=== PATIENT | female | born 1975 | race Caucasian/White ===

== ENCOUNTER 2016-08-13 05:56 | Observation (INO) | payer BC, OTHER ==
[2016-08-13] MEDS ORDERED: ONDANSETRON 4 MG/2 ML VIAL IVP STA (06:21)
[2016-08-13] MEDS ORDERED: LORazepam 2 MG/ML SYRINGE IV STA (06:21)
[2016-08-13] MEDS ORDERED: PANTOPRAZOLE 40 MG/10 ML VIAL IVP STA (06:21)
[2016-08-13] MEDS ORDERED: SODIUM CHLORIDE 0.9% 1,000 ML IV STA (06:21)
--- NOTE | 2016-08-13 06:32 | ED ---
General Adult HPI - General Source: patient, RN notes reviewed, old records reviewed Mode of arrival: wheelchair Limitations: no limitations <Lamont Joyner - Last Filed: 08/13/16 06:31> <Jose F Gentile - Last Filed: 08/13/16 08:53> - General Chief complaint: Chest Pain Stated complaint: Chest Pain Time Seen by Provider: 08/13/16 06:18 - History of Present Illness Initial comments: This is a 40-year-old female here with chest a. Patient has severe chest pain and anxiety, patient suffer from anxiety which was diagnosed in the emergency room under a similar bout of chest pain. Patient denies have blood pressure [place] she'll no diabetes or shortness of breath. Family history of heart disease and her grandma, patient they chest pains and going on for a day and half or grossly worse unable to sleep last night significant source of breath chest pain is left-sided with no radiation she did take her Xanax she did take [id number] antacids with no help. No fevers cough or congestion, no travel history. (Lamont Joyner) - Related Data Home Medications Medication Instructions Recorded Confirmed ALPRAZolam [Xanax] 0.5 mg PO QID 12/18/13 08/13/16 Sertraline HCl [Zoloft] 150 mg PO DAILY 12/18/13 08/13/16 Allergies Allergy/AdvReac Type Severity Reaction Status Date / Time Penicillins Allergy Unknown Verified 12/18/13 19:01 Sulfa (Sulfonamide Allergy Unknown Verified 12/18/13 19:01 Antibiotics) Review of Systems ROS Other: All systems not noted in ROS Statement are negative. <Lamont Joyner - Last Filed: 08/13/16 06:31> ROS Other: All systems not noted in ROS Statement are negative. <Jose F Gentile - Last Filed: 08/13/16 08:53> ROS Statement: Those systems with pertinent positive or pertinent negative responses have been documented in the HPI. Past Medical History Additional Past Medical History / Comment(s): DENTAL ABSCESS History of Any Multi-Drug Resistant Organisms: None Reported Past Surgical History: Orthopedic Surgery Past Psychological History: Anxiety, Depression Smoking Status: Current every day smoker Past Alcohol Use History: Rare Past Drug Use History: None Reported <Lamont Joyner - Last Filed: 08/13/16 06:31> General Exam Limitations: no limitations General appearance: alert, in no apparent distress, anxious Head exam: Present: atraumatic, normocephalic, normal inspection Eye exam: Present: normal appearance, PERRL, EOMI. Absent: scleral icterus, conjunctival injection, periorbital swelling ENT exam: Present: normal exam, mucous membranes moist Neck exam: Present: normal inspection. Absent: tenderness, meningismus, lymphadenopathy Respiratory exam: Present: normal lung sounds bilaterally. Absent: respiratory distress, wheezes, rales, rhonchi, stridor Cardiovascular Exam: Present: regular rate, normal rhythm, normal heart sounds. Absent: systolic murmur, diastolic murmur, rubs, gallop, clicks GI/Abdominal exam: Present: soft, normal bowel sounds. Absent: distended, tenderness, guarding, rebound, rigid Extremities exam: Present: normal inspection, full ROM, normal capillary refill. Absent: tenderness, pedal edema, joint swelling, calf tenderness Back exam: Present: normal inspection Neurological exam: Present: alert, oriented X3, CN II-XII intact Psychiatric exam: Present: normal affect, normal mood Skin exam: Present: warm, dry, intact, normal color. Absent: rash <Lamont Joyner - Last Filed: 08/13/16 06:31> EKG Findings - EKG Comments: EKG Findings:: EKG shows normal sinus rhythm at 79, OH 118, QRS 74, QTC 449 <Lamont Joyner - Last Filed: 08/13/16 06:31> Medical Decision Making <Lamont Joyner - Last Filed: 08/13/16 06:31> - Lab Data Result diagrams: 08/13/16 06:35 08/13/16 06:35 - Radiology Data Radiology results: image reviewed (Chest x-ray shows no acute process.) <Jose F Gentile - Last Filed: 08/13/16 08:53> - Medical Decision Making Patient reevaluated and symptom-free following nitroglycerin. Patient states Ativan helped with her anxiety however did not help with chest discomfort were nitroglycerin did. Patient and family updated on results and plan. Case was discussed in detail with Dr. Vazquez, who will admit for hospital call. (Jose F Gentile) - Lab Data Lab Results 08/13/16 08/13/16 08/13/16 Range/Units 06:35 06:35 06:35 WBC 5.5 (3.8-10.6) k/uL RBC 4.79 (3.80-5.40) m/uL Hgb 15.7 (11.4-16.0) gm/dL Hct 46.4 H (34.0-46.0) % MCV 96.8 (80.0-100.0) fL MCH 32.8 (25.0-35.0) pg MCHC 33.9 (31.0-37.0) g/dL RDW 12.6 (11.5-15.5) % Plt Count 239 (150-450) k/uL Neutrophils % 55 % Lymphocytes % 36 % Monocytes % 5 % Eosinophils % 2 % Basophils % 0 % Neutrophils # 3.0 (1.3-7.7) k/uL Lymphocytes # 2.0 (1.0-4.8) k/uL Monocytes # 0.3 (0-1.0) k/uL Eosinophils # 0.1 (0-0.7) k/uL Basophils # 0.0 (0-0.2) k/uL PT (9.0-12.0) sec INR (<1.1) APTT (22.0-30.0) sec Sodium 147 H (137-145) mmol/L Potassium 4.0 (3.5-5.1) mmol/L Chloride 107 (98-107) mmol/L Carbon Dioxide 27 (22-30) mmol/L Anion Gap 13 mmol/L BUN 15 (7-17) mg/dL Creatinine 0.83 (0.52-1.04) mg/dL Est GFR (MDRD) Af Amer >60 (>60 ml/min/1.73 sqM) Est GFR (MDRD) Non-Af >60 (>60 ml/min/1.73 sqM) Glucose 104 H (74-99) mg/dL Calcium 10.6 H (8.4-10.2) mg/dL Magnesium 2.0 (1.6-2.3) mg/dL Total Bilirubin 0.9 (0.2-1.3) mg/dL AST 18 (14-36) U/L ALT 35 (9-52) U/L Alkaline Phosphatase 70 (38-126) U/L Total Creatine Kinase 25 L (30-135) U/L CK-MB (CK-2) 0.5 (0.0-2.4) ng/mL CK-MB (CK-2) Rel Index 2.0 Troponin I <0.012 (0.000-0.034) ng/mL NT-Pro-B Natriuret Pep pg/mL Total Protein 8.0 (6.3-8.2) g/dL Albumin 4.7 (3.5-5.0) g/dL Lipase 390 H (23-300) U/L Influenza Type A RNA (Not Detectd) Influenza Type B (PCR) (Not Detectd) 08/13/16 08/13/16 08/13/16 Range/Units 06:35 06:35 06:35 WBC (3.8-10.6) k/uL RBC (3.80-5.40) m/uL Hgb (11.4-16.0) gm/dL Hct (34.0-46.0) % MCV (80.0-100.0) fL MCH (25.0-35.0) pg MCHC (31.0-37.0) g/dL RDW (11.5-15.5) % Plt Count (150-450) k/uL Neutrophils % % Lymphocytes % % Monocytes % % Eosinophils % % Basophils % % Neutrophils # (1.3-7.7) k/uL Lymphocytes # (1.0-4.8) k/uL Monocytes # (0-1.0) k/uL Eosinophils # (0-0.7) k/uL Basophils # (0-0.2) k/uL PT 10.8 (9.0-12.0) sec INR 1.1 (<1.1) APTT 24.7 (22.0-30.0) sec Sodium (137-145) mmol/L Potassium (3.5-5.1) mmol/L Chloride (98-107) mmol/L Carbon Dioxide (22-30) mmol/L Anion Gap mmol/L BUN (7-17) mg/dL Creatinine (0.52-1.04) mg/dL Est GFR (MDRD) Af Amer (>60 ml/min/1.73 sqM) Est GFR (MDRD) Non-Af (>60 ml/min/1.73 sqM) Glucose (74-99) mg/dL Calcium (8.4-10.2) mg/dL Magnesium (1.6-2.3) mg/dL Total Bilirubin (0.2-1.3) mg/dL AST (14-36) U/L ALT (9-52) U/L Alkaline Phosphatase (38-126) U/L Total Creatine Kinase (30-135) U/L CK-MB (CK-2) (0.0-2.4) ng/mL CK-MB (CK-2) Rel Index Troponin I (0.000-0.034) ng/mL NT-Pro-B Natriuret Pep 60 pg/mL Total Protein (6.3-8.2) g/dL Albumin (3.5-5.0) g/dL Lipase (23-300) U/L Influenza Type A RNA Not Detected (Not Detectd) Influenza Type B (PCR) Not Detected (Not Detectd) Disposition <Lamont Joyner - Last Filed: 08/13/16 06:31> <Jose F Gentile - Last Filed: 08/13/16 08:53> Clinical Impression: Chest pain Disposition: ADMITTED IP TO THIS HOSP
[2016-08-13 07:01] LABS: Basophils % (A) 0 %; CH 33.5; CHCM 34.8; Eosinophils # (A) 0.1 k/uL (0-0.7); Eosinophils % (A) 2 %; HCT 46.4 % (34.0-46.0); HDW 2.29; HGB 15.7 gm/dL (11.4-16.0); Luc # (Auto) 0.12; Luc % (Auto) 2; Lymphocytes % (A) 36 %; MCH 32.8 pg (25.0-35.0); MCHC 33.9 g/dL (31.0-37.0); MCV 96.8 fL (80.0-100.0); Mean Platelet Volume 6.5; Monocytes # (A) 0.3 k/uL (0-1.0); Monocytes % (A) 5 %; Neutrophils % (A) 55 %; RBC 4.79 m/uL (3.80-5.40); RDW 12.6 % (11.5-15.5); WBC 5.5 k/uL (3.8-10.6); WBC (Perox) 5.38
[2016-08-13 07:10] LABS: INR 1.1 (<1.1); Partial Thromboplastin Time 24.7 sec (22.0-30.0); Prothrombin Time 10.8 sec (9.0-12.0)
[2016-08-13 07:19] LABS: ALT 35 U/L (9-52); AST 18 U/L (14-36); Alkaline Phosphatase 70 U/L (38-126); Anion Gap 13 mmol/L; Blood Urea Nitrogen 15 mg/dL (7-17); Calcium 10.6 mg/dL (8.4-10.2); Carbon Dioxide 27 mmol/L (22-30); Chloride 107 mmol/L (98-107); Glucose 104 mg/dL (74-99); Non-African American GFR(MDRD) >60 (>60 ml/min/1.73 sqM); Sodium 147 mmol/L (137-145); Total Bilirubin 0.9 mg/dL (0.2-1.3)
[2016-08-13 07:25] LABS: Creatine Kinase 25 U/L (30-135)
--- NOTE | 2016-08-13 07:28 | XR ---
EXAMINATION TYPE: XR chest 2V DATE OF EXAM: 08/13/2016 7:18 AM COMPARISON: NONE HISTORY: Chest pain and shortness of breath TECHNIQUE: Frontal and lateral views of the chest are obtained. FINDINGS: There is no focal air space opacity, pleural effusion, or pneumothorax seen. The cardiac silhouette size is within normal limits. The osseous structures are intact. IMPRESSION: No acute cardiopulmonary process.
[2016-08-13 07:36] LABS: Creatine Kinase MB 0.5 ng/mL (0.0-2.4); Troponin I <0.012 ng/mL (0.000-0.034)
[2016-08-13] MEDS ORDERED: NITROGLYCERIN SL TABS 0.4 MG TAB SUBLINGUAL PRN ×2 (07:54→08:57)
[2016-08-13] MEDS ORDERED: ASPIRIN 81 MG CHEW PO STA (08:57)
[2016-08-13] MEDS ORDERED: RX INFO: IV CONTRAST WAS GIVEN 1 EACH MISC MISCELLANE PRN (12:13)
[2016-08-13] MEDS ORDERED: IOHEXOL 350 MG/ML 25 ML BOTTLE (ORAL USE) PO PRN (12:13)
[2016-08-13 12:42] VITALS: BMI 19.4
[2016-08-13 12:54] LABS: Creatine Kinase 21 U/L (30-135)
[2016-08-13 13:06] LABS: Creatine Kinase MB 0.3 ng/mL (0.0-2.4); Troponin I <0.012 ng/mL (0.000-0.034)
[2016-08-13] MEDS: NITROGLYCERIN OINT 1 INCH/GM PACKET TOPICAL SCH ×2 (13:07→16:01)
--- NOTE | 2016-08-13 13:17 | CONS ---
DATE OF CONSULTATION: CHIEF COMPLAINT: Chest pain. [place] is a 40-year-old lady who presented to [facility] complaining of chest pain. She complains of sharp precordial pain without definite radiation to neck, arm or back, unassociated with diaphoresis and unrelated to exertion. She is also very anxious. EKG does not reveal ischemic changes. First set of cardiac enzymes are negative. She is negative for flu. The d-dimer is negative. At the time of my evaluation this morning, she is pain free, hemodynamically stable and in no apparent distress. Medications at home included Zoloft, Xanax and oxycodone. Allergic to PENICILLIN, SULFA, BACTRIM. Family history is negative for premature coronary artery disease. Social history is significant for smoking. There is no history of EtOH abuse or drug abuse. REVIEW OF SYSTEMS: HEENT is unremarkable. CARDIAC: As described above. RESPIRATORY: Negative. GI: Negative. GENITOURINARY: Negative. ALLERGY/IMMUNOLOGY: Negative. SKIN: Negative. MUSCULOSKELETAL: Negative. ENDOCRINE: Negative. CONSTITUTIONAL: Negative. ONCOLOGICAL: Negative. The rest of the system review is not relevant. On exam, comfortable at rest. Vital signs are stable. There is no jugular venous distention. Carotid upstroke is normal. There is no bruit. Chest exam reveals good air entry bilaterally. Heart exam reveals first and second heart sounds. No gallop. No murmur, no rub. Abdomen is soft, nontender. Exam of the extremities did not reveal edema. 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 Labs have been reviewed. ASSESSMENT: Chest pain, atypical, will get another set of troponin to rule out myocardial infarction. Once this is done, obtain an echo to assess wall motion and left ventricular function and hopefully can be discharged home tomorrow and pursue work-up as outpatient.
[2016-08-13] MEDS ORDERED: ONDANSETRON 4 MG/2 ML VIAL IVP PRN (14:26)
--- NOTE | 2016-08-13 14:32 | CT ---
EXAMINATION TYPE: CT abdomen w con DATE OF EXAM: 08/13/2016 2:09 PM COMPARISON: NONE HISTORY: Upper Abdomen and chest pain CT DLP: 298 mGycm Automated exposure control for dose reduction was used. TECHNIQUE: Helical acquisition of images was performed from the lung bases through the top of iliac crest to include entire abdomen. CONTRAST: Performed with Oral Contrast and with IV Contrast, patient injected with 100 mL of Omnipaque 300. FINDINGS: LUNG BASES: No significant abnormality is appreciated. LIVER/GB: No significant abnormality is appreciated. PANCREAS: No significant abnormality is seen. SPLEEN: No significant abnormality is seen. ADRENALS: No significant abnormality is seen. KIDNEYS: No significant abnormality is seen. BOWEL: No significant abnormality is seen. LYMPH NODES: No suspicious abdominal lymphadenopathy. OSSEOUS STRUCTURES: No significant abnormality is seen. OTHER: None IMPRESSION: 1. NORMAL POSTCONTRAST CT ABDOMEN
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
[2016-08-13] MEDS: ALPRAZolam 0.5 MG TAB PO SCH ×2 (16:01→19:48)
[2016-08-13] MEDS: SERTRALINE 50 MG TAB PO SCH (16:01)
[2016-08-13 17:05] VITALS: RESP 16
[2016-08-13 19:26] LABS: Creatine Kinase 24 U/L (30-135)
[2016-08-13 19:38] LABS: Creatine Kinase MB 0.3 ng/mL (0.0-2.4); Troponin I <0.012 ng/mL (0.000-0.034)
[2016-08-14] MEDS: NITROGLYCERIN OINT 1 INCH/GM PACKET TOPICAL SCH ×2 (02:19→04:18)
[2016-08-14] MEDS: SERTRALINE 50 MG TAB PO SCH (07:22)
[2016-08-14] MEDS: ALPRAZolam 0.5 MG TAB PO SCH (07:22)
[2016-08-14 07:33] LABS: Cholesterol 193 mg/dL (<200); HDL Cholesterol 61 mg/dL (40-60); Triglycerides 84 mg/dL (<150)
[2016-08-14 07:39] VITALS: BP 98/65; PULSE 86; TEMP 98.5
--- NOTE | 2016-08-14 08:37 | PN ---
[place] is a 40-year-old lady who was admitted to hospital with chest pain and ruled out for myocardial infarction. This morning, she is doing well and is free of symptoms. Had an echo done. Will follow the results. If that is negative, she can be discharged home. On exam, comfortable at rest. Vital signs are stable. There is no jugular venous distention. Chest exam reveals good air entry bilaterally. Heart exam reveals first and second heart sounds. No gallop. Exam of the extremities did not reveal edema. Peripheral pulses are felt. ASSESSMENT: Atypical chest pain. Patient is doing well and stable for discharge if the echo looks normal.
[2016-08-14] MEDS ORDERED: ASPIRIN 325 MG TAB PO SCH (09:00)
--- NOTE | 2016-08-14 10:20 | ECHOF ---
Referral Reason:cp MEASUREMENTS -------- HEIGHT: 170.2 cm WEIGHT: 56.3 kg BP: 102/54 IVSd: 1.2 cm (0.6 - 1.1) LVIDd: 4.2 cm (3.9 - 5.3) LVPWd: 1.0 cm (0.6 - 1.1) IVSs: 1.6 cm LVIDs: 3.0 cm LVPWs: 1.7 cm Ao Diam: 3.1 cm (2.0 - 3.7) AV Cusp: 2.0 cm (1.5 - 2.6) LA Diam: 3.3 cm (2.7 - 3.8) MV EXCURSION: 12.842 mm (> 18.000) MV EF SLOPE: 91 mm/s (70 - 150) MV E Jan: 0.68 m/s MV DecT: 267 ms MV A Jan: 0.66 m/s MV E/A Ratio: 1.03 RAP: 15.00 mmHg RVSP: 28.36 mmHg FINDINGS -------- Sinus rhythm. This was a technically good study. There is mild concentric left ventricular hypertrophy. Overall left ventricular systolic function is low-normal with, an EF between 50 - 55 %. The right ventricle is normal in size and function. The left atrium is normal in size. The right atrium is normal in size. Aortic valve is trileaflet and is mildly thickened. The mitral valve leaflets are mildly thickened. Mild mitral annular calcification present. There is trace mitral regurgitation. Trace tricuspid regurgitation present. The right ventricular systolic pressure, as measured by Doppler, is 28.36mmHg. Pulmonic valve appears structurally normal. The aortic root size is normal. The pericardium is normal. CONCLUSIONS -------- 1. Sinus rhythm. 2. Mild mitral annular calcification present. 3. There is trace mitral regurgitation. 4. Trace tricuspid regurgitation present. 5. The right ventricular systolic pressure, as measured by Doppler, is 28.36mmHg. 6. Pulmonic valve appears structurally normal. 7. The aortic root size is normal. 8. The pericardium is normal. 9. This was a technically good study. 10. There is mild concentric left ventricular hypertrophy. 11. Overall left ventricular systolic function is low-normal with, an EF between 50 - 55 %. 12. The right ventricle is normal in size and function. 13. The left atrium is normal in size. 14. The right atrium is normal in size. 15. Aortic valve is trileaflet and is mildly thickened. 16. The mitral valve leaflets are mildly thickened. DIRECTOR MEDICAID: Sophia Griffin RDCS
--- NOTE | 2016-08-14 10:50 | P.DS ---
Providers Date of admission: 08/13/16 08:57 Expected date of discharge: 08/14/16 Attending physician: Alexis Wick Consults: Dr. Simons cardiology Primary care physician: Evesn Garcia Hospital Course: 40-year-old female presented on the day of admission to the emergency room to be evaluated for chief complaint of developing sharp left-sided chest discomfort hurt to touch the chest. Patient stated that it radiated to the back of the neck and down the arm. There was no nausea vomiting no diaphoresis. The d-dimer was negative. Patient was seen in the emergency room this nasal swab was negative for influenza. A cardiology consultation was requested. Echocardiogram ordered showed an EF between 50 and 55% left ventricular systolic function normal. There was no valvular heart disease. Cardiac enzymes 3 sets were negative. Additional patient was reportedly experiencing abdominal discomfort. CAT scan of the abdomen and pelvis was normal postcontrast CT abdomen no acute finding chest x-ray showed no acute cardiopulmonary process. Cardiology indicate the patient could be discharged home. The symptoms had resolved patient was felt to be hemodynamically stable and appropriate proceed with a discharge Impression Present on admission chest pain atypical features no evidence of acute coronary syndrome Anxiety disorder nonspecified Current every day smoker 1 pack a day greater than a 20 year history probable COPD Present on admission elevated lipase repeat normal The above dictated assessment and findings were discussed with dr wick . Impression and the plan of care have been dictated as directed. Allyson Aiken nurse practitioner acting as a scribe for Dr. Wick Plan - Discharge Summary Discharge Medication List ALPRAZolam [Xanax] 1 mg PO TID 08/13/16 [History] Sertraline [Zoloft] 100 mg PO DAILY 08/13/16 [History] oxyCODONE HCL 10 mg PO QID PRN 08/13/16 [History] Follow up Appointment(s)/Referral(s): Evens Garcia MD [Primary Care Provider] - 1-2 days Chris Callaway MD [STAFF PHYSICIAN] - 1 Week (Follow up appointment has been schedule for September 11 at 2:[address] Callaway.) Discharge Disposition: HOME SELF-CARE
== END 2016-08-14 11:00 | disposition home or self-care (01) ==
LOC: EC 05:56 → 6SEL 08:57 → 3OBS 16:53
PROVIDERS: ADMIT Family Medicine; ATTEND Family Medicine
DX: R07.89 Other chest pain (principal); R74.8 Abnormal levels of other serum enzymes; M94.0 Chondrocostal junction syndrome [Tietze]; F32.9 Major depressive disorder, single episode, unspecified; F41.9 Anxiety disorder, unspecified; R10.9 Unspecified abdominal pain; F17.200 Nicotine dependence, unspecified, uncomplicated; Z82.49 Family history of ischemic heart disease and other diseases of the circulatory system; Z79.899 Other long term (current) drug therapy; Z88.0 Allergy status to penicillin; Z88.2 Allergy status to sulfonamides; Z79.891 Long term (current) use of opiate analgesic; M21.951 Unspecified acquired deformity of right thigh
CPT/HCPCS: 96361; 96374; 96375 ×2; 99285; 36415; 93005; 93306; 85379; 83880; 80061; 80053; 82550; 82553; 83690 ×2; 83735; 84484; 85025; 85610; 85730; 87502; 71020; 74160; G0378 ×3; J2060; J2405; Q9967; C9113

== ENCOUNTER 2018-05-24 00:34 | Emergency (ER) | payer OTHER ==
[2018-05-24] MEDS ORDERED: methylPREDNISolone SOD SUCCI 125 MG/2 ML VIAL IM ONE (01:03)
[2018-05-24] MEDS ORDERED: IPRATROPIUM-ALBUTEROL 3 ML NEB INHALATION STA (01:03)
[2018-05-24] MEDS ORDERED: PROMETHAZ-COD 6.25-10 MG/5 ML 5 ML CUP PO STA (01:04)
[2018-05-24] MEDS ORDERED: ACETAMINOPHEN TAB 500 MG TAB PO STA (01:04)
[2018-05-24] MEDS ORDERED: PROMETHAZINE HCL 6.25 MG/5 ML CUP PO STA (01:37)
--- NOTE | 2018-05-24 02:00 | XR ---
EXAMINATION TYPE: XR chest 2V DATE OF EXAM: 05/24/2018 COMPARISON: 08/13/2016 HISTORY: Chest pain TECHNIQUE: Frontal and lateral views of the chest are obtained. FINDINGS: Heart and mediastinum are normal. There is a patchy right lower lobe infiltrate. There is no heart failure. Costophrenic angles are clear. Bony thorax is intact. IMPRESSION: There is new right lower lobe pneumonia compared to old exam. Normal heart.
[2018-05-24] MEDS ORDERED: cefTRIAXone 1,000 MG VIAL (IM USE) IM STA (02:18)
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
[2018-05-24 02:45] VITALS: BP 107/66; PULSE 98; RESP 16; TEMP 99.9
== END 2018-05-24 02:45 | disposition home or self-care (01) ==
LOC: EC 00:34
DX: J18.1 Lobar pneumonia, unspecified organism (principal); F41.9 Anxiety disorder, unspecified; F32.9 Major depressive disorder, single episode, unspecified; F17.200 Nicotine dependence, unspecified, uncomplicated; Z79.899 Other long term (current) drug therapy; Z88.0 Allergy status to penicillin; Z88.2 Allergy status to sulfonamides; Z91.012 Allergy to eggs
CPT/HCPCS: 94640; 71046; 99284; 96372 ×2; J2930; J0696

== ENCOUNTER 2018-08-06 10:40 | Inpatient (IN) | payer OTHER ==
[2018-08-06] MEDS ORDERED: SODIUM CHLORIDE 0.9% 1,000 ML IV STA (11:47)
[2018-08-06] MEDS ORDERED: VANCOMYCIN IV PER PHARMACY 1 EACH MISC MISCELLANE PRN (11:47)
--- NOTE | 2018-08-06 12:06 | ED ---
General Adult HPI - General Chief complaint: Skin/Abscess/Foreign Body Stated complaint: foot infection Time Seen by Provider: 08/06/18 11:30 Source: patient, RN notes reviewed Mode of arrival: ambulatory Limitations: no limitations - History of Present Illness Initial comments: Patient 42-year-old female sent to the emergency room today with a chief complaint of infection to the right foot. Patient does admit that it started with some pain earlier in the week. Patient does admit that she had a blister which woke up yesterday she did go to urgent care they did pop the blister and started on antibiotics. She states she's had increased redness today. Patient does admit still having some numbness tingling type pain down into the foot. She currently rates a 10/09. Patient states she did start antibiotics yesterday. Denies any other complaints or symptoms at this time. Patient denies any recent fever, chills, shortness of breath, chest pain, back pain, abdominal pain, headaches or visual changes, or any other complaints. - Related Data Home Medications Medication Instructions Recorded Confirmed Sertraline [Zoloft] 100 mg PO DAILY 08/13/16 05/24/18 Gabapentin 800 mg PO TID 05/24/18 05/24/18 QUEtiapine [SEROquel] 100 mg PO HS 05/24/18 05/24/18 busPIRone HCL [Buspar] 15 mg PO TID 05/24/18 05/24/18 Previous Rx's Medication Instructions Recorded Albuterol Inhaler [Ventolin Hfa 1 - 2 puff INHALATION RT-Q6H PRN 05/24/18 Inhaler] #1 inhaler Azithromycin [Zithromax Z-pack] 250 mg PO DIRECTED #6 tab 05/24/18 Promethazine/Dextromethorphan 5 ml PO TID #120 ml 05/24/18 [Phenergan DM Syrup] predniSONE 50 mg PO DAILY #5 tablet 05/24/18 Allergies Allergy/AdvReac Type Severity Reaction Status Date / Time egg yolk Allergy Anaphylaxis Verified 08/06/18 10:49 /Itching Penicillins Allergy Anaphylaxis Verified 08/06/18 10:49 /Itching Sulfa (Sulfonamide Allergy Anaphylaxis Verified 08/06/18 10:49 Antibiotics) /Itching sulfamethoxazole Allergy Anaphylaxis Verified 08/06/18 10:49 [From Bactrim] /Itching trimethoprim [From Bactrim] Allergy Anaphylaxis Verified 08/06/18 10:49 /Itching Review of Systems ROS Statement: Those systems with pertinent positive or pertinent negative responses have been documented in the HPI. ROS Other: All systems not noted in ROS Statement are negative. Past Medical History Additional Past Medical History / Comment(s): DENTAL ABSCESS History of Any Multi-Drug Resistant Organisms: None Reported Past Surgical History: Hysterectomy, Orthopedic Surgery, Tubal Ligation Additional Past Surgical History / Comment(s): RIGHT LEG, AROUND 2001; UTERUS AND OVARIES REMOVED MORE THAN TEN YEARS AGO DUE TO CYSTIC FIBROIDS AND ENDOMETRIOSIS Past Anesthesia/Blood Transfusion Reactions: No Reported Reaction Past Psychological History: Anxiety, Depression Smoking Status: Current every day smoker Past Alcohol Use History: None Reported Past Drug Use History: Heroin - Past Family History Mother Family Medical History: Cancer Additional Family Medical History / Comment(s): LUNG CA FROM SMOKING; GREAT GRANDMA WAS DIABETIC Father History Unknown: Yes Additional Family Medical History / Comment(s): FATHER AT AGE OF 37 DUE TO RHEUMATIC FEVER COMPLICATIONS General Exam - General Exam Comments Initial Comments: General: The patient is awake and alert, in no distress Neck: The neck is supple Cardiovascular: There is a regular rate and rhythm. No murmur, rub or gallop is appreciated. Respiratory: Lungs are clear to auscultation, respirations are non-labored, breath sounds are equal. No wheezes, stridor, rales, or rhonchi. Musculoskeletal: Normal ROM, no tenderness. Strength 5/5. Sensation intact. Pedal Pulses 2+. Neurological: A&O x 3. CN II-XII intact, There are no obvious motor or sensory deficits. Coordination appears grossly intact. Speech is normal. Skin: Patient does have ulcerated wound to the top of the right great toe. Is redness erythema going up to mid foot. Psychiatric: Cooperative, appropriate mood & affect, normal judgment. Limitations: no limitations Course Vital Signs 08/06/18 10:47 Temperature 98.3 F Pulse Rate 90 Respiratory 18 Rate Blood Pressure 105/68 O2 Sat by Pulse 98 Oximetry Medical Decision Making - Medical Decision Making Patient reexamined at this time shows no signs of distress is resting comfortably. Patient's labs been reviewed negative lactic gas. Negative white count. No elevated fever at triage. Patient's x-ray showing no sign of osteomyelitis. Patient has been on outpatient antibiotics of Keflex. States symptoms are getting worse. Will be admitted to the hospital continued on vancomycin. - Lab Data Result diagrams: 08/06/18 12:06 08/06/18 12:06 Lab Results 08/06/18 08/06/18 08/06/18 Range/Units 12:06 12:06 12:06 WBC 7.4 (3.8-10.6) k/uL RBC 4.46 (3.80-5.40) m/uL Hgb 14.3 (11.4-16.0) gm/dL Hct 43.6 (34.0-46.0) % MCV 97.7 (80.0-100.0) fL MCH 32.0 (25.0-35.0) pg MCHC 32.8 (31.0-37.0) g/dL RDW 14.8 (11.5-15.5) % Plt Count 243 (150-450) k/uL Neutrophils % 61 % Lymphocytes % 28 % Monocytes % 5 % Eosinophils % 4 % Basophils % 0 % Neutrophils # 4.5 (1.3-7.7) k/uL Lymphocytes # 2.1 (1.0-4.8) k/uL Monocytes # 0.4 (0-1.0) k/uL Eosinophils # 0.3 (0-0.7) k/uL Basophils # 0.0 (0-0.2) k/uL Sodium 140 (137-145) mmol/L Potassium 5.0 (3.5-5.1) mmol/L Chloride 108 H (98-107) mmol/L Carbon Dioxide 25 (22-30) mmol/L Anion Gap 7 mmol/L BUN 19 H (7-17) mg/dL Creatinine 0.72 (0.52-1.04) mg/dL Est GFR (CKD-EPI)AfAm >90 (>60 ml/min/1.73 sqM) Est GFR (CKD-EPI)NonAf >90 (>60 ml/min/1.73 sqM) Glucose 81 (74-99) mg/dL Plasma Lactic Acid Wilner 0.9 (0.7-2.0) mmol/L Calcium 9.8 (8.4-10.2) mg/dL Total Bilirubin 0.3 (0.2-1.3) mg/dL AST 20 (14-36) U/L ALT 23 (9-52) U/L Alkaline Phosphatase 101 (38-126) U/L Total Protein 7.3 (6.3-8.2) g/dL Albumin 4.2 (3.5-5.0) g/dL Disposition Clinical Impression: Cellulitis of foot Disposition: ADMITTED IP TO THIS [facility] Condition: Good Is patient prescribed a controlled substance at d/c from ED?: No Referrals: Evens Garcia MD [Primary Care Provider] - 1-2 days Time of Disposition: 13:42
[2018-08-06] MEDS ORDERED: ONDANSETRON 4 MG/2 ML VIAL IVP STA (12:11)
[2018-08-06] MEDS ORDERED: VANCOMYCIN 1,500 MG in SODIUM CHLORIDE 0.9% 250 ML IVPB ONE (12:30)
[2018-08-06 12:48] LABS: ALT 23 U/L (9-52); AST 20 U/L (14-36); Albumin 4.2 g/dL (3.5-5.0); Alkaline Phosphatase 101 U/L (38-126); Anion Gap 7 mmol/L; Blood Urea Nitrogen 19 mg/dL (7-17); Calcium 9.8 mg/dL (8.4-10.2); Carbon Dioxide 25 mmol/L (22-30); Chloride 108 mmol/L (98-107); Glucose 81 mg/dL (74-99); Sodium 140 mmol/L (137-145); Total Bilirubin 0.3 mg/dL (0.2-1.3); Total Protein 7.3 g/dL (6.3-8.2)
[2018-08-06 12:53] LABS: Basophils % (A) 0 %; Eosinophils # (A) 0.3 k/uL (0-0.7); Eosinophils % (A) 4 %; HCT 43.6 % (34.0-46.0); HGB 14.3 gm/dL (11.4-16.0); Lymphocytes # (A) 2.1 k/uL (1.0-4.8); Lymphocytes % (A) 28 %; MCHC 32.8 g/dL (31.0-37.0); MCV 97.7 fL (80.0-100.0); Mean Platelet Volume 6.1; Monocytes # (A) 0.4 k/uL (0-1.0); Monocytes % (A) 5 %; Neutrophils # (A) 4.5 k/uL (1.3-7.7); Neutrophils % (A) 61 %; Platelet Count 243 k/uL (150-450); RBC 4.46 m/uL (3.80-5.40); RDW 14.8 % (11.5-15.5); WBC 7.4 k/uL (3.8-10.6)
--- NOTE | 2018-08-06 13:02 | XR ---
EXAMINATION TYPE: XR foot limited RT DATE OF EXAM: 08/06/2018 CLINICAL HISTORY: pain TECHNIQUE: Frontal, lateral images of the right foot are obtained. COMPARISON: None. FINDINGS: There is no acute fracture/dislocation evident. The joint spaces appear within normal eastman its. The overlying soft tissue appears unremarkable. IMPRESSION: There is no acute fracture or dislocation. ICD 10 NO FRACTURE, INITIAL EVALUATION
[2018-08-06] MEDS ORDERED: NALOXONE 0.4 MG/ML 1 ML VIAL IV PRN (13:42)
[2018-08-06] MEDS ORDERED: SODIUM CHLORIDE 0.9% 1,000 ML IV ONE (13:52)
[2018-08-06] MEDS ORDERED: ACETAMINOPHEN TAB 325 MG TAB PO PRN (13:52)
[2018-08-06] MEDS: HYDROcodone/APAP 5-325MG 1 EACH TAB PO PRN (16:46)
--- NOTE | 2018-08-06 17:36 | P.HPIM ---
History of Present Illness 41-year-old female the [place] infection of the right toe patient started having a blister in that area patient is not a diabetic patient did pop up to the blister patient's symptoms started about a week ago now started having increasing redness pain extending up to the ankle area with redness local is of temperature. Her pain is currently 4/10 in severity. Patient was discharged from my ER with Keflex local wound care instructions. Patient symptoms has worsened because of which are patient came here patient is ALLERGIC to Bactrim. Patient does smoke does have fairly good pulses in both lower extremities. Denied any fever chills Review of Systems REVIEW OF SYSTEMS: CONSTITUTIONAL: No fever, no malaise, no fatigue. HEENT: No recent visual problems or hearing problems. Denied any sore throat. CARDIOVASCULAR: No chest pain, orthopnea, PND, no palpitations, no syncope. PULMONARY: No shortness of breath, no cough, no hemoptysis. GASTROINTESTINAL: No diarrhea, no nausea, no vomiting, no abdominal pain. NEUROLOGICAL: No headaches, no weakness, no numbness. HEMATOLOGICAL: Denies any bleeding or petechiae. GENITOURINARY: Denies any burning micturition, frequency, or urgency. MUSCULOSKELETAL/RHEUMATOLOGICAL: Denies any joint pain, swelling, or any muscle pain. ENDOCRINE: Denies any polyuria or polydipsia. The rest of the 14-point review of systems is negative. Past Medical History Additional Past Medical History / Comment(s): DENTAL ABSCESS History of Any Multi-Drug Resistant Organisms: None Reported Past Surgical History: Hysterectomy, Orthopedic Surgery, Tubal Ligation Additional Past Surgical History / Comment(s): RIGHT LEG, AROUND 2001; UTERUS AND OVARIES REMOVED MORE THAN TEN YEARS AGO DUE TO CYSTIC FIBROIDS AND ENDOMETRIOSIS Past Anesthesia/Blood Transfusion Reactions: No Reported Reaction Past Psychological History: Anxiety, Depression Smoking Status: Current every day smoker Past Alcohol Use History: None Reported Past Drug Use History: Heroin - Past Family History Mother Family Medical History: Cancer Additional Family Medical History / Comment(s): LUNG CA FROM SMOKING; GREAT GRANDMA WAS DIABETIC Father History Unknown: Yes Additional Family Medical History / Comment(s): FATHER AT AGE OF 37 DUE TO RHEUMATIC FEVER COMPLICATIONS Medications and Allergies Home Medications Medication Instructions Recorded Confirmed Type Sertraline [Zoloft] 100 mg PO DAILY 08/13/16 08/06/18 History Gabapentin 800 mg PO QID 11/23/18 02/05/19 History QUEtiapine [SEROquel] 100 mg PO HS 05/24/18 08/06/18 History busPIRone HCL [Buspar] 15 mg PO TID 05/24/18 08/06/18 History Cephalexin [Keflex] 500 mg PO Q6HR 08/06/18 08/06/18 History Allergies Allergy/AdvReac Type Severity Reaction Status Date / Time egg yolk Allergy Anaphylaxis Verified 08/06/18 15:16 /Itching Penicillins Allergy Anaphylaxis Verified 08/06/18 15:16 /Itching Sulfa (Sulfonamide Allergy Anaphylaxis Verified 08/06/18 15:16 Antibiotics) /Itching sulfamethoxazole Allergy Anaphylaxis Verified 08/06/18 15:16 [From Bactrim] /Itching trimethoprim [From Bactrim] Allergy Anaphylaxis Verified 08/06/18 15:16 /Itching Physical Exam Vitals: Vital Signs Temp Pulse Resp BP Pulse Ox 08/06/18 16:45 98 F 75 18 132/56 96 08/06/18 10:47 98.3 F 90 18 105/68 98 Intake and Output 08/06/18 08/06/18 08/06/18 06:59 14:59 22:59 Other: Weight 72.575 kg PHYSICAL EXAMINATION: GENERAL: The patient is alert and oriented x3, not in any acute distress. Well developed, well nourished. HEENT: Pupils are round and equally reacting to light. EOMI. No scleral icterus. No conjunctival pallor. Normocephalic, atraumatic. No pharyngeal erythema. No thyromegaly. CARDIOVASCULAR: S1 and S2 present. No murmurs, rubs, or gallops. PULMONARY: Chest is clear to auscultation, no wheezing or crackles. ABDOMEN: Soft, nontender, nondistended, normoactive bowel sounds. No palpable organomegaly. MUSCULOSKELETAL: No joint swelling or deformity. EXTREMITIES: No cyanosis, clubbing, or pedal edema. NEUROLOGICAL: Gross neurological examination did not reveal any focal deficits. SKIN: Is an ulcer on the dose last but of the right great to with surrounding cellulitis tenderness redness extending up to right ankle area. Results CBC & Chem 7: 08/06/18 12:06 08/06/18 12:06 Labs: Abnormal Lab Results - Last 24 Hours (Table) 08/06/18 Range/Units 12:06 Chloride 108 H (98-107) mmol/L BUN 19 H (7-17) mg/dL Assessment and Plan Plan: -Right great toe ulcer nondiabetic foot ulcer with cellulitis and failed outpatient her be: Patient will be started on vancomycin infectious disease will be consulted for local wound care and wound cultures were obtained patient doesn't have any obvious pus draining out of the wound. 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
[2018-08-06] MEDS: KETOROLAC 30 MG/ML 1 ML VIAL IVP PRN (18:55)
[2018-08-06] MEDS: GABAPENTIN 400 MG CAP PO SCH ×2 (18:55→21:00)
[2018-08-06] MEDS: QUEtiapine 100 MG TAB PO SCH (21:00)
[2018-08-06] MEDS: busPIRone HCl 5 MG TAB PO SCH (21:00)
[2018-08-06] MEDS: FAMOTIDINE 20 MG TAB PO SCH (21:00)
[2018-08-06] MEDS: VANCOMYCIN 1,250 MG in SODIUM CHLORIDE 0.9% 250 ML IVPB SCH (21:00)
[2018-08-07 02:29] LABS: Hepatitis A Antibody IgM Non-Reactive (Non-Reactive); Hepatitis B Core IgM Non-Reactive (Non-Reactive)
[2018-08-07] MEDS: VANCOMYCIN 1,250 MG in SODIUM CHLORIDE 0.9% 250 ML IVPB SCH ×3 (05:26→21:22)
[2018-08-07] MEDS: KETOROLAC 30 MG/ML 1 ML VIAL IVP PRN ×3 (05:30→17:46)
[2018-08-07] MEDS: SERTRALINE 100 MG TAB PO SCH (08:11)
[2018-08-07] MEDS: FAMOTIDINE 20 MG TAB PO SCH ×3 (08:11→20:38)
[2018-08-07] MEDS: GABAPENTIN 400 MG CAP PO SCH ×4 (08:14→21:22)
[2018-08-07 08:34] LABS: ALT 22 U/L (9-52); AST 25 U/L (14-36); Albumin 3.8 g/dL (3.5-5.0); Alkaline Phosphatase 65 U/L (38-126); Anion Gap 2 mmol/L; Blood Urea Nitrogen 15 mg/dL (7-17); Calcium 8.9 mg/dL (8.4-10.2); Carbon Dioxide 27 mmol/L (22-30); Chloride 112 mmol/L (98-107); Glucose 96 mg/dL (74-99); Sodium 141 mmol/L (137-145); Total Bilirubin 0.5 mg/dL (0.2-1.3); Total Protein 6.6 g/dL (6.3-8.2)
[2018-08-07 08:37] LABS: Potassium 5.4 mmol/L (3.5-5.1)
[2018-08-07 08:54] LABS: Basophils % (A) 1 %; Eosinophils # (A) 0.4 k/uL (0-0.7); Eosinophils % (A) 5 %; HCT 41.1 % (34.0-46.0); Lymphocytes # (A) 2.2 k/uL (1.0-4.8); Lymphocytes % (A) 30 %; MCH 31.7 pg (25.0-35.0); MCHC 31.7 g/dL (31.0-37.0); Macrocytosis Slight; Mean Platelet Volume 6.1; Monocytes # (A) 0.4 k/uL (0-1.0); Monocytes % (A) 5 %; Neutrophils # (A) 4.2 k/uL (1.3-7.7); Neutrophils % (A) 59 %; Platelet Count 213 k/uL (150-450); RBC 4.11 m/uL (3.80-5.40); RDW 14.7 % (11.5-15.5); WBC 7.2 k/uL (3.8-10.6)
[2018-08-07] MEDS: HYDROcodone/APAP 5-325MG 1 EACH TAB PO PRN ×3 (09:50→20:37)
[2018-08-07] MEDS: busPIRone HCl 5 MG TAB PO SCH ×3 (10:21→21:22)
[2018-08-07] MEDS: ONDANSETRON 4 MG/2 ML VIAL IVP PRN (10:57)
--- NOTE | 2018-08-07 14:57 | P.DS ---
Providers Date of admission: 08/06/18 13:35 Attending physician: Colby Hawkins Consults: 08/06/18 17:37 Consult Physician Routine Consulting Provider: Francisco Dumont Consult Reason/Comments: Foot ulcer and cellulitis Do you want consulting provider notified?: Yes Primary care physician: Evens Garcia Hospital Course: 41-year-old female the came in infection of the right toe patient started having a blister in that area patient is not a diabetic patient did pop up to the blister patient's symptoms started about a week ago now started having increasing redness pain extending up to the ankle area with redness local is of temperature. Her pain is currently 4/10 in severity. Patient was discharged from my ER with Keflex local wound care instructions. Patient symptoms has worsened because of which are patient came here patient is ALLERGIC to Bactrim. Patient does smoke does have fairly good pulses in both lower extremities. Denied any fever chills 08/07/2018 No overnight events the patient will be evaluated by infectious diseases if cleared for discharge patient will be discharged on oral antibiotics patient will need local wound care. Hepatitis panel was negative PHYSICAL EXAMINATION: GENERAL: The patient is alert and oriented x3, not in any acute distress. Well developed, well nourished. HEENT: Pupils are round and equally reacting to light. EOMI. No scleral icterus. No conjunctival pallor. Normocephalic, atraumatic. No pharyngeal erythema. No thyromegaly. CARDIOVASCULAR: S1 and S2 present. No murmurs, rubs, or gallops. PULMONARY: Chest is clear to auscultation, no wheezing or crackles. ABDOMEN: Soft, nontender, nondistended, normoactive bowel sounds. No palpable organomegaly. MUSCULOSKELETAL: No joint swelling or deformity. EXTREMITIES: No cyanosis, clubbing, or pedal edema. NEUROLOGICAL: Gross neurological examination did not reveal any focal deficits. SKIN: Is an ulcer on the dose last but of the right great to with surrounding cellulitis tenderness redness extending up to right ankle area. Redness improved Assessment and Plan Plan: -Right great toe ulcer nondiabetic foot ulcer with cellulitis and failed outpatient her be: Patient probably can be discharged if agreeable by infectious disease with local wound care in oral and Videx although patient is ALLERGIC to Bactrim -Nicotine abuse: Counseling was provided -Depression -Peripheral neuropathy for which patient uses gabapentin which will be continued -History of IV heroine, hepatitis panel is negative Patient Condition at Discharge: Good Plan - Discharge Summary Discharge Rx Participant: Yes New Discharge Prescriptions: New Ibuprofen [Motrin] 400 mg PO Q6HR PRN #30 tab PRN Reason: Pain Ranitidine HCl [Zantac] 150 mg PO BID #30 tab Discontinued Cephalexin [Keflex] 500 mg PO Q6HR No Action Sertraline [Zoloft] 100 mg PO DAILY busPIRone HCL [Buspar] 15 mg PO TID QUEtiapine [SEROquel] 100 mg PO HS Gabapentin 800 mg PO QID Discharge Medication List Sertraline [Zoloft] 100 mg PO DAILY 08/13/16 [History] Gabapentin 800 mg PO QID 05/24/18 [History] QUEtiapine [SEROquel] 100 mg PO HS 05/24/18 [History] busPIRone HCL [Buspar] 15 mg PO TID 05/24/18 [History] Ibuprofen [Motrin] 400 mg PO Q6HR PRN #30 tab 08/07/18 [Rx] Ranitidine HCl [Zantac] 150 mg PO BID #30 tab 08/07/18 [Rx] Follow up Appointment(s)/Referral(s): Evens Garcia MD [Primary Care Provider] - 1-2 days Patient Instructions/Handouts: Cellulitis (DC) Activity/Diet/Wound Care/Special Instructions: Wants D/C Rx
[2018-08-07] MEDS: QUEtiapine 100 MG TAB PO SCH (20:38)
--- NOTE | 2018-08-08 00:23 | CONS ---
CONSULTATION DATE OF SERVICE: 08/07/2018. REASON FOR CONSULTATION: Right big toe and foot cellulitis. HISTORY OF PRESENT ILLNESS: The patient is a 42-year-old female, who apparently did develop a blister on the dorsal aspect of her right big toe and the patient did not recall if she has used any new or tight fitting shoes. The patient did mention that the blisters have become bigger in size and subsequent involving some swelling and redness involvement of the right foot. The patient did have a throbbing pain of the toe with intensity about 6 to 7 out of 10, and no radiation. The patient denies any high-grade fever. The patient did went to urgent care where apparently the blister was opened up and she mentioned no cultures were done. She was started on Bactrim DS. The patient took the Bactrim DS for day. However, she noticed the redness spreading further on the dorsum aspect of her right foot that did concern the patient. The patient subsequently presented to the [facility] ER yesterday. The patient did have x-rays of the right foot which did not show any acute fracture or bony changes. The patient was not running any fever and her white count was within normal. Hepatitis serology was negative. The patient was started on vancomycin because of her antibiotic allergy. Infectious Disease was consulted for further recommendation regarding antibiotic therapy. REVIEW OF SYSTEMS: Positive points have been mentioned in the HPI. Rest of the 14 systems has been negative. PAST MEDICAL HISTORY: Dental abscess, anxiety, depression. PAST SURGICAL HISTORY: Hysterectomy. Tubal ligation. SOCIAL HISTORY: Current everyday smoker. Does have a history of IV drug use. Denies any drinking. FAMILY HISTORY: Mother with history of lung cancer, father age of 72 complication. ALLERGIES: PENICILLIN AND SULFA WITH THE RASH. MEDICATION: The patient is currently on Tylenol, [place], Buspar, Pepcid, Neurontin, Toradol, vancomycin pharmacy to dose, Marcaine, Zofran, Reglan, Zoloft. PHYSICAL EXAMINATION: Blood pressure is 101/67 with a pulse of 82, temperature is 98.3. She is 95% on room air. General description is a middle aged female, lying in bed in no distress. No tachypnea or accessory muscle of respiration use. HEENT: Shows no pallor or scleral icterus. Oral mucosa membranes are dry. No pharyngeal erythema or thrush. Neck: Trachea central. No thyromegaly. Lungs unlabored breathing. Clear to auscultation anteriorly. No wheeze or crackles. Heart S1, S2. Regular rate and rhythm. ABDOMEN: Soft, no tenderness. No guarding or rigidity. Extremities: No edema of the feet. Examination of the right foot dorsal aspect did have a superficial wound with minimal soft tissue with some surrounding redness. No foul smelling drainage. The wound was clean. The cultures obtained. Neurological: Patient is awake, alert, and oriented times three. Mood and affect normal. LABS: Hemoglobin is 13, white count 7.2 with a BUN of 15, creatinine 0.77. Blood cultures have been negative. DIAGNOSTIC IMPRESSION AND PLAN: Patient admitted to the hospital with a right big toe wound with secondary cellulitis in this patient who seemed to have not responded very well to the oral Keflex therapy in this patient who does have a PENICILLIN and BACTRIM DS ALLERGY limiting the number of oral options available. Unfortunately, no cultures were done on admission that will delay the discharge as we need the cultures to determine the right antibiotic for this patient on discharge. PLAN: 1. Wound cultures were obtained at the bedside today. 2. Vancomycin, pharmacy to dose target of 15 to continue another 24 to 48 hours depending upon the culture report. 3. Once culture available, hopefully we will be able to send the patient home on some oral antibiotics. Recommend local wound care with Aquacel Silver dressing. Plan of care discussed with the admitting physician. MMODL / IJN: [id number] /
[2018-08-08] MEDS ORDERED: VANCOMYCIN TROUGH DUE 1 EACH MISC MISCELLANE ONE (05:00)
[2018-08-08] MEDS: KETOROLAC 30 MG/ML 1 ML VIAL IVP PRN (06:56)
[2018-08-08] MEDS: VANCOMYCIN 1,250 MG in SODIUM CHLORIDE 0.9% 250 ML IVPB SCH ×2 (06:56→17:32)
[2018-08-08] MEDS: SERTRALINE 100 MG TAB PO SCH (08:35)
[2018-08-08] MEDS: busPIRone HCl 5 MG TAB PO SCH ×3 (08:35→22:04)
[2018-08-08] MEDS: HYDROcodone/APAP 5-325MG 1 EACH TAB PO PRN ×4 (08:35→22:09)
[2018-08-08] MEDS: FAMOTIDINE 20 MG TAB PO SCH ×2 (08:35→20:35)
[2018-08-08] MEDS: GABAPENTIN 400 MG CAP PO SCH ×4 (08:36→22:04)
--- NOTE | 2018-08-08 17:15 | P.PN ---
Subjective 41-year-old female the came in infection of the right toe patient started having a blister in that area patient is not a diabetic patient did pop up to the blister patient's symptoms started about a week ago now started having increasing redness pain extending up to the ankle area with redness local is of temperature. Her pain is currently 4/10 in severity. Patient was discharged from my ER with Keflex local wound care instructions. Patient symptoms has worsened because of which are patient came here patient is ALLERGIC to Bactrim. Patient does smoke does have fairly good pulses in both lower extremities. Denied any fever chills 08/07/2018 No overnight events the patient will be evaluated by infectious diseases if cleared for discharge patient will be discharged on oral antibiotics patient will need local wound care. Hepatitis panel was negative 08/08/2018 Wound cultures are showing gram-positive cocci in clusters mostly staph aureus will await wound cultures tomorrow possibility of discharge tomorrow and oral antibiotics depending on the wound cultures Constitutional: Denied any fatigue denied any fever. Cardio vascular: denied any chest pain, palpitations Gastrointestinal denied any nausea vomiting Pulmonary: Denied any shortness of breath cough Neurologic denied any new focal deficits All inpatient medications were reviewed and appropriate changes in these medications as dictated in the interval history and assessment and plan. Objective - Vital Signs Vital signs: Vital Signs Temp 97.8 F 08/08/18 13:56 Pulse 86 08/08/18 13:56 Resp 16 08/08/18 16:00 BP 107/71 08/08/18 13:56 Pulse Ox 94 L 08/08/18 13:56 Intake & Output 08/07/18 08/08/18 08/08/18 18:59 06:59 18:59 Intake Total 1200 600 Balance 1200 600 Intake: Oral 1200 600 Other: Voiding Method Toilet Toilet # Voids 2 1 4 - Exam PHYSICAL EXAMINATION: GENERAL: The patient is alert and oriented x3, not in any acute distress. Well developed, well nourished. HEENT: Pupils are round and equally reacting to light. EOMI. No scleral icterus. No conjunctival pallor. Normocephalic, atraumatic. No pharyngeal erythema. No thyromegaly. CARDIOVASCULAR: S1 and S2 present. No murmurs, rubs, or gallops. PULMONARY: Chest is clear to auscultation, no wheezing or crackles. ABDOMEN: Soft, nontender, nondistended, normoactive bowel sounds. No palpable organomegaly. MUSCULOSKELETAL: No joint swelling or deformity. EXTREMITIES: No cyanosis, clubbing, or pedal edema. NEUROLOGICAL: Gross neurological examination did not reveal any focal deficits. SKIN: Is an ulcer on the dose last but of the right great to with surrounding cellulitis tenderness redness extending up to right ankle area. Significantly improved Redness. - Labs CBC & Chem 7: 08/07/18 08:30 08/07/18 07:57 Labs: Microbiology - Last 24 Hours (Table) 08/06/18 12:06 Blood Culture - Preliminary Blood No Growth after 48 hours 08/07/18 Unknown Gram Stain - Preliminary Toe - Right First Wound Culture - Preliminary Assessment and Plan Plan: -Right great toe ulcer nondiabetic foot ulcer with cellulitis and failed outpatient therapy: Patient will be started on vancomycin infectious disease evaluated the patient is awaiting wound cultures. -Nicotine abuse: Counseling was provided -Depression -Peripheral neuropathy for which patient uses gabapentin which will be continued -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
[2018-08-08] MEDS: QUEtiapine 100 MG TAB PO SCH (20:35)
[2018-08-09] MEDS: VANCOMYCIN 1,250 MG in SODIUM CHLORIDE 0.9% 250 ML IVPB SCH (06:02)
--- NOTE | 2018-08-09 07:34 | PN ---
PROGRESS NOTE DATE OF SERVICE: 08/08/2018 REASON FOR FOLLOWUP: Right big toe wound and foot cellulitis, MRSA. INTERVAL HISTORY: The patient is afebrile. She is breathing comfortably, pain, swelling and redness of the right foot has decreased. Patient denies having any chest pain, shortness of breath, cough. No abdominal pain, no diarrhea. PHYSICAL EXAMINATION: Blood pressure is 117/77 with a pulse of 80, temperature 97.8, she is 92% on room air. General description is an elderly female lying in bed in no distress. RESPIRATORY SYSTEM: Unlabored breathing, clear to auscultation anteriorly. HEART: S1, S2. Regular rate and rhythm. ABDOMEN: Soft, no tenderness. Right big toe dorsum wound with with no palpation. No surrounding redness or drainage. LABS: No new labs have been obtained today. The culture yesterday has been presumptive MRSA. Blood cultures have been negative. DIAGNOSTIC IMPRESSION AND PLAN: Patient with right big toe dorsum wound with secondary cellulitis culture with presumptive MRSA. Will keep the patient on vancomycin, pharmacy to dose while waiting for the cultures to finalize to determine discharge antibiotic as the patient is allergic to Bactrim DS. Hopefully, will be considered to tetracyclines so doxycycline could be used. Otherwise, the patient will be treated with IV antibiotic therapy. Local care to continue with Aquacel Silver dressing. Continue supportive care. MMODL / IJN: [id number] /
--- NOTE | 2018-08-09 08:55 | PN ---
PROGRESS NOTE DATE OF SERVICE: 08/08/2018 REASON FOR FOLLOWUP: Right big toe wound and foot cellulitis, MRSA. INTERVAL HISTORY: The patient is afebrile, she is breathing comfortably. The pain, swelling and redness of the right foot has decreased. The patient denies any chest pain, shortness of breath, no cough, no abdominal pain, no diarrhea. PHYSICAL EXAMINATION: Blood pressure is 117/77 with a pulse of 80, temperature 97.8, she is 92% on room air. General description is an elderly female. lying in bed in no distress. RESPIRATORY SYSTEM: Unlabored breathing, clear to auscultation anteriorly. HEART: S1, S2. Regular rate and rhythm. ABDOMEN: Soft. Right big toe dorsum wound with no palpation. No surrounding redness or drainage. LABS: No new labs been obtained today. Urine culture yesterday is being presumptive MRSA. Blood cultures have been negative. DIAGNOSTIC IMPRESSION AND PLAN: Patient with right big toe dorsum wound with secondary cellulitis, culture with presumptive MRSA. Will keep the patient on vancomycin, pharmacy to dose while waiting for the cultures to finalize to determine discharge antibiotic as the patient is allergic to BACTRIM DS. Hopefully, will be sensitive to tetracyclines, so doxycycline can be used. Otherwise, the patient will be treated with IV antibiotic therapy. Local care to continue with Aquacel Silver dressing. Continue supportive care. MMODL / IJN: [id number] /
[2018-08-09] MEDS: HYDROcodone/APAP 5-325MG 1 EACH TAB PO PRN ×2 (10:22→14:55)
[2018-08-09] MEDS: SERTRALINE 100 MG TAB PO SCH (10:22)
[2018-08-09] MEDS: GABAPENTIN 400 MG CAP PO SCH ×2 (10:22→13:09)
[2018-08-09] MEDS: busPIRone HCl 5 MG TAB PO SCH (10:22)
[2018-08-09] MEDS: ONDANSETRON 4 MG/2 ML VIAL IVP PRN (10:23)
[2018-08-09] MEDS: FAMOTIDINE 20 MG TAB PO SCH (10:23)
[2018-08-09 10:39] LABS: HCT 36.7 % (34.0-46.0); HGB 12.4 gm/dL (11.4-16.0); MCH 33.4 pg (25.0-35.0); MCHC 33.7 g/dL (31.0-37.0); MCV 99.2 fL (80.0-100.0); Mean Platelet Volume 6.1; Platelet Count 213 k/uL (150-450); RDW 14.5 % (11.5-15.5); WBC 5.7 k/uL (3.8-10.6)
[2018-08-09 10:45] LABS: Anion Gap 4 mmol/L; Blood Urea Nitrogen 12 mg/dL (7-17); Calcium 8.9 mg/dL (8.4-10.2); Carbon Dioxide 26 mmol/L (22-30); Chloride 111 mmol/L (98-107); Glucose 108 mg/dL (74-99); Potassium 4.4 mmol/L (3.5-5.1); Sodium 141 mmol/L (137-145)
--- NOTE | 2018-08-09 14:11 | P.PN ---
Subjective 41-year-old female the came in infection of the right toe patient started having a blister in that area patient is not a diabetic patient did pop up to the blister patient's symptoms started about a week ago now started having increasing redness pain extending up to the ankle area with redness local is of temperature. Her pain is currently 4/10 in severity. Patient was discharged from my ER with Keflex local wound care instructions. Patient symptoms has worsened because of which are patient came here patient is ALLERGIC to Bactrim. Patient does smoke does have fairly good pulses in both lower extremities. Denied any fever chills 08/07/2018 No overnight events the patient will be evaluated by infectious diseases if cleared for discharge patient will be discharged on oral antibiotics patient will need local wound care. Hepatitis panel was negative 08/08/2018 Wound cultures are showing gram-positive cocci in clusters mostly staph aureus will await wound cultures tomorrow possibility of discharge tomorrow and oral antibiotics depending on the wound cultures 08/09/2018 Patient won't cultures are positive for MRSA since these are not back yet. Constitutional: Denied any fatigue denied any fever. Cardio vascular: denied any chest pain, palpitations Gastrointestinal denied any nausea vomiting Pulmonary: Denied any shortness of breath cough Neurologic denied any new focal deficits All inpatient medications were reviewed and appropriate changes in these medications as dictated in the interval history and assessment and plan. Objective - Vital Signs Vital signs: Vital Signs Temp 97.8 F 08/09/18 06:24 Pulse 65 08/09/18 06:24 Resp 17 08/09/18 06:24 BP 125/84 08/09/18 06:24 Pulse Ox 95 08/09/18 06:24 Intake & Output 08/08/18 08/09/18 08/09/18 18:59 06:59 18:59 Intake Total 1200 Balance 1200 Intake: Oral 1200 Other: Voiding Method Toilet # Voids 3 1 - Exam PHYSICAL EXAMINATION: GENERAL: The patient is alert and oriented x3, not in any acute distress. Well developed, well nourished. HEENT: Pupils are round and equally reacting to light. EOMI. No scleral icterus. No conjunctival pallor. Normocephalic, atraumatic. No pharyngeal erythema. No thyromegaly. CARDIOVASCULAR: S1 and S2 present. No murmurs, rubs, or gallops. PULMONARY: Chest is clear to auscultation, no wheezing or crackles. ABDOMEN: Soft, nontender, nondistended, normoactive bowel sounds. No palpable organomegaly. MUSCULOSKELETAL: No joint swelling or deformity. EXTREMITIES: No cyanosis, clubbing, or pedal edema. NEUROLOGICAL: Gross neurological examination did not reveal any focal deficits. SKIN: Is an ulcer on the dose last but of the right great to with surrounding cellulitis tenderness redness extending up to right ankle area. Significantly improved Redness. - Labs CBC & Chem 7: 08/09/18 10:12 08/09/18 10:12 Labs: Abnormal Lab Results - Last 24 Hours (Table) 08/09/18 08/09/18 Range/Units 10:12 10:12 RBC 3.70 L (3.80-5.40) m/uL Chloride 111 H (98-107) mmol/L Glucose 108 H (74-99) mg/dL Microbiology - Last 24 Hours (Table) 08/07/18 Unknown Gram Stain - Preliminary Toe - Right First Wound Culture - Preliminary Presumptive MRSA 08/06/18 12:06 Blood Culture - Preliminary Blood No Growth after 48 hours Assessment and Plan Plan: -Right great toe ulcer nondiabetic foot ulcer with cellulitis and failed outpatient therapy: Patient will be started on vancomycin infectious disease evaluated the patient is awaiting wound culturesancestry days, showing MRSA hopefully this MRSA was instructed to clindamycin or doxycycline -Nicotine abuse: Counseling was provided -Depression -Peripheral neuropathy for which patient uses gabapentin which will be continued -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
[2018-08-09 14:56] VITALS: BP 136/83; PULSE 73; RESP 16; TEMP 98.1
--- NOTE | 2018-08-09 15:25 | PN ---
PROGRESS NOTE DATE OF SERVICE: 08/09/2018 REASON FOR FOLLOWUP: Right big toe wound infection with MRSA. INTERVAL HISTORY: The patient is currently afebrile. She is breathing comfortably. Denies having any chest pain, shortness of breath, no cough, no abdominal pain, or any pain to the right big toe area. PHYSICAL EXAMINATION: Blood pressure 136/83 with a pulse of 73, temperature 98.1, she is 95% on room air. General description is a middle-aged female lying in bed in no distress. RESPIRATORY SYSTEM: Unlabored breathing, clear to auscultation anteriorly. HEART: S1, S2. Regular rate and rhythm. ABDOMEN: Soft, no tenderness. Right big toe wound with dressing with no obvious drainage on the dressing. Surrounding swelling, redness has improved. LABS: BUN of 12, creatinine 0.79, white count 5.7. DIAGNOSTIC IMPRESSION AND PLAN: Patient with right big toe wound infection with secondary cellulitis, culture positive for MRSA. Patient is allergic to BACTRIM DS antibiotic. Will transition to doxycycline 100 mg twice a day for 10 days, local wound care with Aquacel Silver dressing. Patient advised to follow up in the [facility] next week. Continue supportive care. MMODL / IJN: [id number] /
--- NOTE | 2018-08-09 15:32 | P.DS ---
Providers Date of admission: 08/06/18 13:35 Attending physician: Colby Hawkins Consults: 08/06/18 17:37 Consult Physician Routine Consulting Provider: Francisco Dumont Consult Reason/Comments: Foot ulcer and cellulitis Do you want consulting provider notified?: Yes Primary care physician: Evens Garcia Hospital Course: Later in the day we did get cultures and studies and the patient's MRSA is sensitive to doxycycline patient will be discharged on doxycycline Keflex is being discontinued. Please refer to my progress note for further details Patient Condition at Discharge: Good Plan - Discharge Summary Discharge Rx Participant: Yes New Discharge Prescriptions: New Ibuprofen [Motrin] 400 mg PO Q6HR PRN #30 tab PRN Reason: Pain Ranitidine HCl [Zantac] 150 mg PO BID #30 tab Doxycycline Hyclate 100 mg PO BID #20 tab Discontinued Cephalexin [Keflex] 500 mg PO Q6HR No Action Sertraline [Zoloft] 100 mg PO DAILY busPIRone HCL [Buspar] 15 mg PO TID QUEtiapine [SEROquel] 100 mg PO HS Gabapentin 800 mg PO QID Discharge Medication List Sertraline [Zoloft] 100 mg PO DAILY 08/13/16 [History] Gabapentin 800 mg PO QID 05/24/18 [History] QUEtiapine [SEROquel] 100 mg PO HS 05/24/18 [History] busPIRone HCL [Buspar] 15 mg PO TID 05/24/18 [History] Ibuprofen [Motrin] 400 mg PO Q6HR PRN #30 tab 08/07/18 [Rx] Ranitidine HCl [Zantac] 150 mg PO BID #30 tab 08/07/18 [Rx] Doxycycline Hyclate 100 mg PO BID #20 tab 08/09/18 [Rx] Follow up Appointment(s)/Referral(s): Evens Garcia MD [Primary Care Provider] - 08/20/18 11:00 am Patient Instructions/Handouts: Cellulitis (DC) Activity/Diet/Wound Care/Special Instructions: wound care to the left big toe wound with Aquacel silver dressing to be changed every other day, follow up with Dr. Dumont in the wound care center next week call [phone] to make an appointment Discharge Disposition: HOME SELF-CARE
[2018-08-10] MEDS ORDERED: VANCOMYCIN TROUGH DUE 1 EACH MISC MISCELLANE ONE (05:00)
== END 2018-08-09 16:08 | disposition home or self-care (01) | DRG 603 ==
LOC: EC 10:40 → 4MS4W 13:35
PROVIDERS: ADMIT Internal Medicine; ATTEND Internal Medicine
DX: L03.031 Cellulitis of right toe (principal); B95.62 Methicillin resistant Staphylococcus aureus infection as the cause of diseases classified elsewhere; Z71.6 Tobacco abuse counseling; F17.210 Nicotine dependence, cigarettes, uncomplicated; F32.9 Major depressive disorder, single episode, unspecified; F41.9 Anxiety disorder, unspecified; G62.9 Polyneuropathy, unspecified; Z79.899 Other long term (current) drug therapy; Z80.1 Family history of malignant neoplasm of trachea, bronchus and lung; Z83.3 Family history of diabetes mellitus; Z88.1 Allergy status to other antibiotic agents; Z88.2 Allergy status to sulfonamides; Z90.710 Acquired absence of both cervix and uterus; Z88.0 Allergy status to penicillin; F11.11 Opioid abuse, in remission; Z91.012 Allergy to eggs
CPT/HCPCS: 36415; 80048; 80053; 80074; 80202; 83605; 85025; 85027; 87040; 87070; 87077; 87186; 87205; 96365; 96366; 96367; 96375; 99285

== ENCOUNTER 2019-11-27 18:31 | Emergency (ER) | payer OTHER ==
[2019-11-27 18:37] VITALS: RESP 18
[2019-11-27] MEDS ORDERED: SODIUM CHLORIDE 0.9% 1,000 ML IV STA (18:53)
[2019-11-27] MEDS ORDERED: SODIUM CHLORIDE 0.9% 500 ML 500 ML IV STA (18:53)
[2019-11-27] MEDS ORDERED: ONDANSETRON 4 MG/2 ML VIAL IVP STA (18:53)
--- NOTE | 2019-11-27 19:01 | ED ---
General Adult HPI - General Chief complaint: Weakness Stated complaint: fall-[facility] Time Seen by Provider: 11/27/19 18:38 Source: patient Mode of arrival: wheelchair Limitations: no limitations - History of Present Illness Initial comments: 44 year-old female patient presents to the emergency department today for evaluation of generalized weakness and nausea. Patient states that this morning at work she started to feel nauseous and like she was going to pass out. Patient states that she was going into the break room to sit down when she collapsed to the floor. States she did not lose consciousness, did not hit her head. States that she laid there for a few minutes and then got up but she was feeling very weak. States she was sent home. She was able to take a nap, have food, and drink some fluids. She said after her nap she still feels very weak and like her equilibrium is off. States she is still having nausea though she did take some zofran. She has had no vomiting. Denies any chest pain or shortness of breath. Denies any history of similar symptoms. Denies any history of cardiac disease or family history of cardiac disease. He does have an extensive psychiatric history and has been taking the same medications for quite some time. 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 Patient denies any recent rash, fever, chills, cough, abdominal pain, constipation, back pain, numbness, tingling, hematuria, dysuria, urinary urgency, urinary frequency, headache, visual changes, or any other complaints. - Related Data Home Medications Medication Instructions Recorded Confirmed Sertraline [Zoloft] 100 mg PO DAILY 08/13/16 08/06/18 Gabapentin 800 mg PO QID 05/24/18 08/06/18 QUEtiapine [SEROquel] 100 mg PO HS 05/24/18 08/06/18 busPIRone HCL [Buspar] 15 mg PO TID 05/24/18 08/06/18 Previous Rx's Medication Instructions Recorded Ibuprofen [Motrin] 400 mg PO Q6HR PRN #30 tab 08/07/18 Ranitidine HCl [Zantac] 150 mg PO BID #30 tab 08/07/18 Doxycycline Hyclate 100 mg PO BID #20 tab 08/09/18 Allergies Allergy/AdvReac Type Severity Reaction Status Date / Time egg yolk Allergy Anaphylaxis Verified 11/27/19 18:36 /Itching Penicillins Allergy Anaphylaxis Verified 11/27/19 18:36 /Itching Sulfa (Sulfonamide Allergy Anaphylaxis Verified 11/27/19 18:36 Antibiotics) /Itching sulfamethoxazole Allergy Anaphylaxis Verified 11/27/19 18:36 [From Bactrim] /Itching trimethoprim [From Bactrim] Allergy Anaphylaxis Verified 11/27/19 18:36 /Itching Review of Systems ROS Statement: Those systems with pertinent positive or pertinent negative responses have been documented in the HPI. ROS Other: All systems not noted in ROS Statement are negative. Past Medical History Past Medical History: No Reported History Additional Past Medical History / Comment(s): DENTAL ABSCESS History of Any Multi-Drug Resistant Organisms: MRSA Date of last positivie culture/infection: 08/07/18 MDRO Source:: TOE Past Surgical History: Hysterectomy, Orthopedic Surgery, Tubal Ligation Additional Past Surgical History / Comment(s): RIGHT LEG, AROUND 2001; UTERUS AND OVARIES REMOVED MORE THAN TEN YEARS AGO DUE TO CYSTIC FIBROIDS AND ENDOMETRIOSIS, Past Anesthesia/Blood Transfusion Reactions: No Reported Reaction Additional Past Anesthesia/Blood Transfusion Reaction / Comment(s): clausterphobia. pt has never received a blood transfusion Past Psychological History: Anxiety, Bipolar, Depression Smoking Status: Current every day smoker Past Alcohol Use History: None Reported Past Drug Use History: Heroin - Past Family History Mother Family Medical History: Cancer Additional Family Medical History / Comment(s): LUNG CA FROM SMOKING; GREAT GRANDMA WAS DIABETIC Father History Unknown: Yes Additional Family Medical History / Comment(s): FATHER AT AGE OF 37 DUE TO RHEUMATIC FEVER COMPLICATIONS General Exam Limitations: no limitations General appearance: alert, in no apparent distress, other (This is a well- developed, well-nourished adult female patient in no acute distress. Vital signs upon presentation are temperature 98.1F, pulse 86, respirations 18, blood pressure 115/64, pulse ox 96% on room air.) Eye exam: Present: normal appearance, PERRL, EOMI. Absent: scleral icterus, conjunctival injection, periorbital swelling ENT exam: Present: normal exam, normal oropharynx, mucous membranes moist Respiratory exam: Present: normal lung sounds bilaterally. Absent: respiratory distress, wheezes, rales, rhonchi, stridor Cardiovascular Exam: Present: regular rate, normal rhythm, normal heart sounds. Absent: systolic murmur, diastolic murmur, rubs, gallop, clicks GI/Abdominal exam: Present: soft, normal bowel sounds. Absent: distended, tenderness, guarding, rebound, rigid Neurological exam: Present: alert, oriented X3, CN II-XII intact Expanded Speech: Present: fluid speech Cranial nerves: EOM's Intact: Normal, Tongue Deviation: Normal, Nystagmus: Normal Motor strength exam: RUE: 5, LUE: 5, RLE: 5, LLE: 5 Psychiatric exam: Present: normal affect, normal mood Skin exam: Present: warm, dry, intact, normal color. Absent: rash Course Vital Signs 11/27/19 11/27/19 18:34 20:28 Temperature 98.1 F 97.5 F L Pulse Rate 86 78 Respiratory 18 18 Rate Blood Pressure 115/64 107/78 O2 Sat by Pulse 96 100 Oximetry EKG Findings - EKG Comments: EKG Findings:: EKG obtained in 1902 shows normal sinus rhythm with a ventricular rate of 71, FL interval 140, QRS duration 84, QT 390, QTC 423. No evidence of ST elevation or depression. Medical Decision Making - Medical Decision Making 44 year-old female patient presents to the emergency department today for evaluation of generalized weakness and nausea. Physical examination is unremarkable. She is neurologically intact with no focal deficits. Labs reviewed and are unremarkable. Chest x-ray shows no acute cardiopulmonary process. She is given IV fluids while here. Upon reevaluation she is resting comfortably in bed. States she feels no different. I did discuss findings and results with her. We will discharge to follow up with her primary care physicia n for recheck in 1-2 days. She was given 2 days off work. Return parameters were discussed in detail. She verbalizes understanding and agrees with this plan. - Lab Data Result diagrams: 11/27/19 19:12 11/27/19 19:12 Lab Results 11/27/19 11/27/19 11/27/19 Range/Units 19:12 19:12 19:12 WBC 7.3 (3.8-10.6) k/uL RBC 3.95 (3.80-5.40) m/uL Hgb 13.0 (11.4-16.0) gm/dL Hct 39.8 (34.0-46.0) % MCV 101.0 H (80.0-100.0) fL MCH 33.1 (25.0-35.0) pg MCHC 32.7 (31.0-37.0) g/dL RDW 12.4 (11.5-15.5) % Plt Count 200 (150-450) k/uL Neutrophils % 48 % Lymphocytes % 39 % Monocytes % 6 % Eosinophils % 4 % Basophils % 1 % Neutrophils # 3.5 (1.3-7.7) k/uL Lymphocytes # 2.8 (1.0-4.8) k/uL Monocytes # 0.5 (0-1.0) k/uL Eosinophils # 0.3 (0-0.7) k/uL Basophils # 0.0 (0-0.2) k/uL PT 9.4 (9.0-12.0) sec INR 0.9 (<1.2) APTT 24.7 (22.0-30.0) sec Sodium 139 (137-145) mmol/L Potassium 4.1 (3.5-5.1) mmol/L Chloride 107 (98-107) mmol/L Carbon Dioxide 26 (22-30) mmol/L Anion Gap 6 mmol/L BUN 13 (7-17) mg/dL Creatinine 0.82 (0.52-1.04) mg/dL Est GFR (CKD-EPI)AfAm >90 (>60 ml/min/1.73 sqM) Est GFR (CKD-EPI)NonAf 86 (>60 ml/min/1.73 sqM) Glucose 101 H (74-99) mg/dL Plasma Lactic Acid Wilner (0.7-2.0) mmol/L Calcium 9.2 (8.4-10.2) mg/dL Total Bilirubin 0.2 (0.2-1.3) mg/dL AST 23 (14-36) U/L ALT 13 (4-34) U/L Alkaline Phosphatase 80 (38-126) U/L Troponin I (0.000-0.034) ng/mL Total Protein 6.7 (6.3-8.2) g/dL Albumin 3.9 (3.5-5.0) g/dL TSH 1.390 (0.465-4.680) mIU/L Urine Color Urine Appearance (Clear) Urine pH (5.0-8.0) Ur Specific [place] (1.001-1.035) Urine Protein (Negative) Urine Glucose (UA) (Negative) Urine Ketones (Negative) Urine Blood (Negative) Urine Nitrite (Negative) Urine Bilirubin (Negative) Urine Urobilinogen (<2.0) mg/dL Ur Leukocyte Esterase (Negative) 11/27/19 11/27/19 11/27/19 Range/Units 19:12 19:12 20:17 WBC (3.8-10.6) k/uL RBC (3.80-5.40) m/uL Hgb (11.4-16.0) gm/dL Hct (34.0-46.0) % MCV (80.0-100.0) fL MCH (25.0-35.0) pg MCHC (31.0-37.0) g/dL RDW (11.5-15.5) % Plt Count (150-450) k/uL Neutrophils % % Lymphocytes % % Monocytes % % Eosinophils % % Basophils % % Neutrophils # (1.3-7.7) k/uL Lymphocytes # (1.0-4.8) k/uL Monocytes # (0-1.0) k/uL Eosinophils # (0-0.7) k/uL Basophils # (0-0.2) k/uL PT (9.0-12.0) sec INR (<1.2) APTT (22.0-30.0) sec Sodium (137-145) mmol/L Potassium (3.5-5.1) mmol/L Chloride (98-107) mmol/L Carbon Dioxide (22-30) mmol/L Anion Gap mmol/L BUN (7-17) mg/dL Creatinine (0.52-1.04) mg/dL Est GFR (CKD-EPI)AfAm (>60 ml/min/1.73 sqM) Est GFR (CKD-EPI)NonAf (>60 ml/min/1.73 sqM) Glucose (74-99) mg/dL Plasma Lactic Acid Wilner 0.8 (0.7-2.0) mmol/L Calcium (8.4-10.2) mg/dL Total Bilirubin (0.2-1.3) mg/dL AST (14-36) U/L ALT (4-34) U/L Alkaline Phosphatase (38-126) U/L Troponin I <0.012 (0.000-0.034) ng/mL Total Protein (6.3-8.2) g/dL Albumin (3.5-5.0) g/dL TSH (0.465-4.680) mIU/L Urine Color Yellow Urine Appearance Clear (Clear) Urine pH 5.5 (5.0-8.0) Ur Specific [place] 1.020 (1.001-1.035) Urine Protein Negative (Negative) Urine Glucose (UA) Negative (Negative) Urine Ketones Negative (Negative) Urine Blood Negative (Negative) Urine Nitrite Negative (Negative) Urine Bilirubin Negative (Negative) Urine Urobilinogen <2.0 (<2.0) mg/dL Ur Leukocyte Esterase Negative (Negative) - Radiology Data Radiology results: report reviewed, image reviewed Two-view x-ray of the chest is obtained. Report reviewed in its entirety. Impression by Dr. Stephen shows normal chest. There is clearing of the mild infiltrate right lower lobe compared to old exam. Disposition Clinical Impression: Weakness Disposition: HOME SELF-CARE Condition: Good Instructions (If sedation given, give patient instructions): Weakness (ED) Additional Instructions: Increase fluids. Rest. Follow up with her primary care physician for recheck in 1-2 days. Return to the emergency department immediately for any new, worsening, or concerning symptoms. Is patient prescribed a controlled substance at d/c from ED?: No Referrals: Evens Garcia MD [Primary Care Provider] - 1-2 days Time of Disposition: 20:56
[2019-11-27 19:35] LABS: ALT 13 U/L (4-34); AST 23 U/L (14-36); African American GFR (CKD) >90 (>60 ml/min/1.73 sqM); Albumin 3.9 g/dL (3.5-5.0); Alkaline Phosphatase 80 U/L (38-126); Anion Gap 6 mmol/L; Blood Urea Nitrogen 13 mg/dL (7-17); Calcium 9.2 mg/dL (8.4-10.2); Carbon Dioxide 26 mmol/L (22-30); Chloride 107 mmol/L (98-107); Glucose 101 mg/dL (74-99); Non-African American GFR(CKD) 86 (>60 ml/min/1.73 sqM); Potassium 4.1 mmol/L (3.5-5.1); Sodium 139 mmol/L (137-145); Total Bilirubin 0.2 mg/dL (0.2-1.3); Total Protein 6.7 g/dL (6.3-8.2)
[2019-11-27 19:39] LABS: Basophils % (A) 1 %; Eosinophils # (A) 0.3 k/uL (0-0.7); Eosinophils % (A) 4 %; HCT 39.8 % (34.0-46.0); Lymphocytes # (A) 2.8 k/uL (1.0-4.8); Lymphocytes % (A) 39 %; MCH 33.1 pg (25.0-35.0); MCHC 32.7 g/dL (31.0-37.0); Mean Platelet Volume 7.7; Monocytes # (A) 0.5 k/uL (0-1.0); Monocytes % (A) 6 %; Neutrophils # (A) 3.5 k/uL (1.3-7.7); Neutrophils % (A) 48 %; Platelet Count 200 k/uL (150-450); RBC 3.95 m/uL (3.80-5.40); RDW 12.4 % (11.5-15.5); WBC 7.3 k/uL (3.8-10.6)
[2019-11-27 19:49] LABS: INR 0.9 (<1.2); Partial Thromboplastin Time 24.7 sec (22.0-30.0); Prothrombin Time 9.4 sec (9.0-12.0)
--- NOTE | 2019-11-27 19:56 | XR ---
EXAMINATION TYPE: XR chest 2V DATE OF EXAM: 11/27/2019 COMPARISON: 05/24/2018 HISTORY: Weakness TECHNIQUE: FINDINGS: Heart and mediastinum are normal. Lungs are clear. Diaphragm is normal. Bony thorax appears normal. IMPRESSION: Normal chest. There is clearing of the mild infiltrate right lower lobe compared to old e xam.
[2019-11-27 20:29] VITALS: BP 107/78; PULSE 78; TEMP 97.5
[2019-11-27 20:47] LABS: Appearance,Urine Clear (Clear); Bilirubin,Urine Negative (Negative); Blood,Urine Negative (Negative); Color,Urine Yellow; Glucose,Urine (UA) Negative (Negative); Ketones,Urine Negative (Negative); Leukocyte Esterase,Urine Negative (Negative); Nitrite,Urine Negative (Negative); PH, Urine 5.5 (5.0-8.0); Protein,Urine Negative (Negative); Urobilinogen,Urine <2.0 mg/dL (<2.0)
[2019-11-27] MEDS ORDERED: ONDANSETRON 4 MG ODT STARTER PACK 2 TAB BTL PO STA (20:56)
== END 2019-11-27 21:19 | disposition home or self-care (01) ==
LOC: EC 18:31
DX: R53.1 Weakness (principal); R11.0 Nausea; F41.9 Anxiety disorder, unspecified; F31.9 Bipolar disorder, unspecified; F17.200 Nicotine dependence, unspecified, uncomplicated; Z88.0 Allergy status to penicillin; Z88.1 Allergy status to other antibiotic agents; Z88.2 Allergy status to sulfonamides; Z91.012 Allergy to eggs
CPT/HCPCS: 36415; 93005; 80053; 84443; 83605; 84484; 85025; 85610; 85730; 81003; 71046; 99285; 96374; 96361; J2405

== ENCOUNTER 2022-11-30 17:22 | Inpatient (IN) | payer MEDICAID, OTHER ==
--- NOTE | 2022-11-30 18:01 | ED ---
Psych HPI - General Chief Complaint: Psychiatric Symptoms Stated Complaint: Mental Health Time Seen by Provider: 11/30/22 18:00 Source: patient, RN notes reviewed, old records reviewed Mode of arrival: ambulatory - History of Present Illness Initial Comments: This is a 47-year-old female presented for evaluation. Patient presents today for evaluation of psychiatric illness. Denies Depression and suicidal thoughts. Patient denies recent drug or alcohol abuse a she is hearing voices has history of current voices although feels like her more relentless today, increasing her underlying anxiety and fear. As questioning continue patient is denying current suicidal thoughts MD Complaint: altered mental status -: minutes(s) Associated Psychiatric Symptoms: none, depression History of same: Yes Quality: constant, intermittent Improves With: none Worsens With: none Context: not taking psychiatric medications Associated Symptoms: denies other symptoms Treatments Prior to Arrival: placed on mental health hold - Related Data Home Medications Medication Instructions Recorded Confirmed Buprenorphine HCl/Naloxone HCl 0.5 film SL DAILY@1600 11/30/22 11/30/22 [Suboxone 8 mg-2 mg Sl Film] Buprenorphine HCl/Naloxone HCl 1 film SL BID@0430,1200 11/30/22 11/30/22 [Suboxone 8 mg-2 mg Sl Film] Omeprazole 20 mg PO BID@0430,1600 11/30/22 11/30/22 Ondansetron Odt [Zofran ODT] 4 mg PO BID PRN 11/30/22 11/30/22 Pregabalin [Lyrica] 150 mg PO BID@0430,1600 11/30/22 11/30/22 Zonisamide [Zonegran] 200 mg PO DAILY@1600 11/30/22 11/30/22 estradioL [Estrace] 1 mg PO DAILY@0430 11/30/22 11/30/22 tiZANidine [Zanaflex] 4 mg PO BID@0430,1600 11/30/22 11/30/22 Previous Rx's Medication Instructions Recorded ARIPiprazole [Abilify] 5 mg PO DAILY 30 Days #30 tab 12/05/22 busPIRone HCL 15 mg PO BID@0430,1600 30 Days #60 12/05/22 tab lamoTRIgine [LaMICtal] 200 mg PO DAILY@0430 30 Days #30 12/05/22 tab Allergies Allergy/AdvReac Type Severity Reaction Status Date / Time egg yolk Allergy Anaphylaxis Verified 11/30/22 20:48 /Itching Penicillins Allergy Anaphylaxis Verified 11/30/22 20:48 /Itching Sulfa (Sulfonamide Allergy Anaphylaxis Verified 11/30/22 20:48 Antibiotics) /Itching sulfamethoxazole Allergy Anaphylaxis Verified 11/30/22 20:48 [From Bactrim] /Itching trimethoprim [From Bactrim] Allergy Anaphylaxis Verified 11/30/22 20:48 /Itching Review of Systems ROS Statement: Those systems with pertinent positive or pertinent negative responses have been documented in the HPI. ROS Other: All systems not noted in ROS Statement are negative. Past Medical History Past Medical History: No Reported History Additional Past Medical History / Comment(s): DENTAL ABSCESS History of Any Multi-Drug Resistant Organisms: MRSA Date of last positivie culture/infection: 08/07/18 MDRO Source:: TOE Past Surgical History: Hysterectomy, Orthopedic Surgery, Tubal Ligation Additional Past Surgical History / Comment(s): RIGHT LEG, AROUND 2001; UTERUS AND OVARIES REMOVED MORE THAN TEN YEARS AGO DUE TO CYSTIC FIBROIDS AND ENDOMETRIOSIS, adrianna knees Past Anesthesia/Blood Transfusion Reactions: No Reported Reaction Additional Past Anesthesia/Blood Transfusion Reaction / Comment(s): clausterphobia. pt has never received a blood transfusion Past Psychological History: Anxiety, Bipolar, Depression Smoking Status: Current every day smoker Past Alcohol Use History: None Reported Past Drug Use History: Heroin - Past Family History Mother Family Medical History: Cancer Additional Family Medical History / Comment(s): LUNG CA FROM SMOKING; GREAT GRANDMA WAS DIABETIC Father History Unknown: Yes Additional Family Medical History / Comment(s): FATHER AT AGE OF 37 DUE TO RHEUMATIC FEVER COMPLICATIONS General Exam Limitations: no limitations General appearance: alert, in no apparent distress Head exam: Present: atraumatic, normocephalic, normal inspection Eye exam: Present: normal appearance, PERRL, EOMI. Absent: scleral icterus, conjunctival injection, periorbital swelling ENT exam: Present: normal exam, mucous membranes moist Neck exam: Present: normal inspection. Absent: tenderness, meningismus, lymphadenopathy Respiratory exam: Present: normal lung sounds bilaterally. Absent: respiratory distress, wheezes, rales, rhonchi, stridor Cardiovascular Exam: Present: regular rate, normal rhythm, normal heart sounds. Absent: systolic murmur, diastolic murmur, rubs, gallop, clicks GI/Abdominal exam: Present: soft, normal bowel sounds. Absent: distended, tenderness, guarding, rebound, rigid Extremities exam: Present: normal inspection, full ROM, normal capillary refill. Absent: tenderness, pedal edema, joint swelling, calf tenderness Back exam: Present: normal inspection Neurological exam: Present: alert, oriented X3, CN II-XII intact Psychiatric exam: Present: normal affect, normal mood Skin exam: Present: warm, dry, intact, normal color. Absent: rash Course Vital Signs 11/30/22 11/30/22 17:23 22:24 Temperature 99.0 F 98.3 F Pulse Rate 103 H 66 Respiratory 20 18 Rate Blood Pressure 117/71 107/69 O2 Sat by Pulse 94 L 98 Oximetry - Reevaluation(s) Reevaluation #1: 11/30/22 20:02 Medical record is reviewed Reevaluation #2: 11/30/22 20:02 Medical clear for psychiatric evaluation Medical Decision Making - Medical Decision Making 47-year-old female to be admitted for psychiatric Evaluation and treatment - Lab Data Result diagrams: 12/01/22 08:44 12/01/22 08:44 Lab Results 11/30/22 11/30/22 11/30/22 Range/Units 20:44 20:44 20:44 Urine Color Yellow Urine Appearance Cloudy H (Clear) Urine pH 6.0 (5.0-8.0) Ur Specific [place] 1.020 (1.001-1.035) Urine Protein Trace H (Negative) Urine Glucose (UA) Negative (Negative) Urine Ketones Negative (Negative) Urine Blood Negative (Negative) Urine Nitrite Negative (Negative) Urine Bilirubin Negative (Negative) Urine Urobilinogen 2.0 (<2.0) mg/dL Ur Leukocyte Esterase Negative (Negative) Urine RBC 1 (0-5) /hpf Urine WBC 5 (0-5) /hpf Ur Squamous Epith Cells 18 H (0-4) /hpf Urine Bacteria Rare H (None) /hpf Urine Mucus Rare H (None) /hpf Urine Yeast (Budding) Rare H (None) /hpf Urine HCG, Qual (Not Detectd) Urine Opiates Screen Not Detected (NotDetected) Ur Oxycodone Screen Not Detected (NotDetected) Urine Methadone Screen Not Detected (NotDetected) Ur Propoxyphene Screen Not Detected (NotDetected) Ur Barbiturates Screen Not Detected (NotDetected) U Tricyclic Antidepress Not Detected (NotDetected) Ur Phencyclidine Scrn Not Detected (NotDetected) Ur Amphetamines Screen Not Detected (NotDetected) U Methamphetamines Scrn Not Detected (NotDetected) U Benzodiazepines Scrn Not Detected (NotDetected) Urine Cocaine Screen Not Detected (NotDetected) U Marijuana (THC) Screen Not Detected (NotDetected) Coronavirus (PCR) Not Detected (Not Detectd) 11/30/22 Range/Units 20:44 Urine Color Urine Appearance (Clear) Urine pH (5.0-8.0) Ur Specific [place] (1.001-1.035) Urine Protein (Negative) Urine Glucose (UA) (Negative) Urine Ketones (Negative) Urine Blood (Negative) Urine Nitrite (Negative) Urine Bilirubin (Negative) Urine Urobilinogen (<2.0) mg/dL Ur Leukocyte Esterase (Negative) Urine RBC (0-5) /hpf Urine WBC (0-5) /hpf Ur Squamous Epith Cells (0-4) /hpf Urine Bacteria (None) /hpf Urine Mucus (None) /hpf Urine Yeast (Budding) (None) /hpf Urine HCG, Qual Not Detected (Not Detectd) Urine Opiates Screen (NotDetected) Ur Oxycodone Screen (NotDetected) Urine Methadone Screen (NotDetected) Ur Propoxyphene Screen (NotDetected) Ur Barbiturates Screen (NotDetected) U Tricyclic Antidepress (NotDetected) Ur Phencyclidine Scrn (NotDetected) Ur Amphetamines Screen (NotDetected) U Methamphetamines Scrn (NotDetected) U Benzodiazepines Scrn (NotDetected) Urine Cocaine Screen (NotDetected) U Marijuana (THC) Screen (NotDetected) Coronavirus (PCR) (Not Detectd) Disposition Clinical Impression: Acute anxiety, Bipolar disorder, Chronic schizophrenia, Psychosis, Drug-induced psychotic disorder Disposition: TRANSFER TO PSYCH HOSP/UNIT Condition: Fair Is patient prescribed a controlled substance at d/c from ED?: No
[2022-11-30 21:27] LABS: Amphetamine Screen,Urine Not Detected (NotDetected); Barbiturate Screen,Urine Not Detected (NotDetected); Benzodiazepines Screen,Urine Not Detected (NotDetected); Cocaine Screen,Urine Not Detected (NotDetected); Methadone Screen, Urine Not Detected (NotDetected); Opiate Screen,Urine Not Detected (NotDetected); Oxycodone Screen, Urine Not Detected (NotDetected); Phencyclidine Screen,Urine Not Detected (NotDetected); Tricyclic Antidepressant,Urine Not Detected (NotDetected); Urn Cannabinoid Scrn Not Detected (NotDetected)
[2022-11-30] MEDS ORDERED: MAG HYDROX/AL HYDROX/SIMETH 30 ML CUP PO PRN (22:13)
[2022-11-30] MEDS ORDERED: MAGNESIUM HYDROXIDE 2,400 MG/10 ML CUP PO PRN (22:13)
[2022-11-30] MEDS ORDERED: ACETAMINOPHEN TAB 325 MG TAB PO PRN (22:13)
[2022-11-30] MEDS ORDERED: HALOPERIDOL LACTATE 5 MG/ML 1 ML VIAL IM PRN (22:18)
[2022-11-30] MEDS ORDERED: haloperidoL 5 MG TAB PO PRN (22:18)
[2022-11-30] MEDS ORDERED: LORazepam 2 MG/ML INJ IM PRN (22:18)
[2022-11-30] MEDS: LORazepam 1 MG TAB PO PRN (23:38)
[2022-12-01 00:08] LABS: Appearance,Urine Cloudy (Clear); Bacteria,Urine Rare /hpf; Bilirubin,Urine Negative (Negative); Blood,Urine Negative (Negative); Budding Yeast,Urine Rare /hpf; Color,Urine Yellow; Glucose,Urine (UA) Negative (Negative); Ketones,Urine Negative (Negative); Leukocyte Esterase,Urine Negative (Negative); Mucus,Urine Rare /hpf; Nitrite,Urine Negative (Negative); Protein,Urine Trace (Negative); RBC,Urine 1 /hpf (0-5); Squamous Epithelial Cell,Urine 18 /hpf (0-4); WBC,Urine 5 /hpf (0-5)
[2022-12-01] MEDS ORDERED: NAPROXEN 250 MG TAB PO PRN (02:22)
--- NOTE | 2022-12-01 04:06 | P.MDCNMH ---
History of Present Illness H&P Date: 12/01/22 Chief Complaint: medical eval 47 YEAR OLD female with no significant past medical history she is coming in today for psych evaluation due to hearing voices for 1 week now, the voices are not telling her anything she denies any suicidal or homicidal ideation, but the voices are giving her anxiety and fear. she denies any fever, chills, cough, sore throat, chest pain , trouble breathing , nausea , vomiting, abd pain , changes in urinary or bowel habits. she denies tobacco smoking, illicit drugs or alcohol Review of Systems Pertinent positives as noted in HPI. All other systems were reviewed and are negative Past Medical History Past Medical History: No Reported History Additional Past Medical History / Comment(s): DENTAL ABSCESS History of Any Multi-Drug Resistant Organisms: MRSA Date of last positivie culture/infection: 08/07/18 MDRO Source:: TOE Past Surgical History: Hysterectomy, Orthopedic Surgery, Tubal Ligation Additional Past Surgical History / Comment(s): RIGHT LEG, AROUND 2001; UTERUS AND OVARIES REMOVED MORE THAN TEN YEARS AGO DUE TO CYSTIC FIBROIDS AND ENDOMETRIOSIS, adrianna knees Past Anesthesia/Blood Transfusion Reactions: No Reported Reaction Additional Past Anesthesia/Blood Transfusion Reaction / Comment(s): clausterphobia. pt has never received a blood transfusion Past Psychological History: Anxiety, Bipolar, Depression Additional Psychological History / Comment(s): bipolar Smoking Status: Current every day smoker Past Alcohol Use History: None Reported Past Drug Use History: Heroin, Opiates Additional Drug Use History / Comment(s): Pt has been sober for 1.5 years. UDS neg - Past Family History Mother Family Medical History: Cancer Additional Family Medical History / Comment(s): LUNG CA FROM SMOKING; GREAT GRANDMA WAS DIABETIC Father History Unknown: Yes Additional Family Medical History / Comment(s): FATHER AT AGE OF 37 DUE TO RHEUMATIC FEVER COMPLICATIONS Medications and Allergies Home Medications Medication Instructions Recorded Confirmed Type Buprenorphine HCl/Naloxone HCl 0.5 film SL DAILY@1600 11/30/22 11/30/22 History [Suboxone 8 mg-2 mg Sl Film] Buprenorphine HCl/Naloxone HCl 1 film SL BID@0430,1200 11/30/22 11/30/22 History [Suboxone 8 mg-2 mg Sl Film] Omeprazole 20 mg PO BID@0430,1600 11/30/22 11/30/22 History Ondansetron Odt [Zofran Odt] 4 mg PO BID PRN 11/30/22 11/30/22 History Pregabalin [Lyrica] 150 mg PO BID@0430,1600 11/30/22 11/30/22 History Sertraline [Zoloft] 200 mg PO DAILY@0430 11/30/22 11/30/22 History Zonisamide [Zonegran] 200 mg PO DAILY@159911/30/22 11/30/22 History busPIRone HCL 15 mg PO BID@0430,159911/30/22 11/30/22 History estradioL [Estrace] 1 mg PO DAILY@42911/30/22 11/30/22 History lamoTRIgine [LaMICtal] 200 mg PO DAILY@42911/30/22 11/30/22 History tiZANidine [Zanaflex] 4 mg PO BID@0430,159911/30/22 11/30/22 History Allergies Allergy/AdvReac Type Severity Reaction Status Date / Time egg yolk Allergy Anaphylaxis Verified 11/30/22 20:48 /Itching Penicillins Allergy Anaphylaxis Verified 11/30/22 20:48 /Itching Sulfa (Sulfonamide Allergy Anaphylaxis Verified 11/30/22 20:48 Antibiotics) /Itching sulfamethoxazole Allergy Anaphylaxis Verified 11/30/22 20:48 [From Bactrim] /Itching trimethoprim [From Bactrim] Allergy Anaphylaxis Verified 11/30/22 20:48 /Itching Physical Exam Vitals: Vital Signs Temp Pulse Resp BP BP Pulse Ox 11/30/22 23:56 97.6 F 18 102/65 97 11/30/22 22:24 98.3 F 66 18 107/69 98 11/30/22 17:23 99.0 F 103 H 20 117/71 94 L Intake and Output 11/30/22 11/30/22 12/01/22 14:59 22:59 06:59 Other: Weight 72.575 kg 72.688 kg Constitutional: No acute distress, conversant, pleasant Eyes: Anicteric sclerae, moist conjunctiva, Pupils equal round reactive to light ENMT: NC/AT Oropharynx clear, no erythema, or exudates Neck: Supple, no masses, or JVD No carotid bruits No thyromegaly Lungs: Clear to auscultation Clear to percussion Normal respiratory effort, no accessory muscle use Cardiovascular: Heart regular in rate and rhythm, No murmurs, gallops, or rubs No peripheral edema Abdominal: Soft Nontender, no guarding, rebound or rigidity Abdomen moving with respiration Normoactive bowel sounds Skin: Normal temperature, tone, texture, turgor No induration No subcutaneous nodules No rash, lesions No ulcers Extremities: No digital cyanosis No clubbing Pedal pulses intact and symmetrical Radial pulses intact and symmetrical No calf tenderness Psychiatric: Alert and oriented to person, place and time Neuro Muscles Strength 5/5 in all 4 extremities Sensation to light touch grossly present throughout Cranial nerves II-XII grossly intact Lymphatics: no palpable cervical or supraclavicular lymph nodes Cranial Nerve Examination - Cranial Nerves Cranial Nerve II- Optic: Intact Cranial Nerve III- Oculomotor: Intact Cranial Nerve IV- Trochlear: Intact Cranial Nerve V- Trigeminal: Intact Cranial Nerve - Abducens: Intact Cranial Nerve VII- Facial: Intact Cranial Nerve VIII- Auditory: Intact Cranial Nerve IX- Glossopharyngeal: Intact Cranial Nerve X- Vagus: Intact Cranial Nerve XI- Accessory: Intact Cranial Nerve XII- Hypoglossal: Intact Results Labs: Abnormal Lab Results - Last 24 Hours (Table) 11/30/22 Range/Units 20:44 Urine Appearance Cloudy H (Clear) Urine Protein Trace H (Negative) Ur Squamous Epith Cells 18 H (0-4) /hpf Urine Bacteria Rare H (None) /hpf Urine Mucus Rare H (None) /hpf Urine Yeast (Budding) Rare H (None) /hpf Assessment and Plan Assessment: acute psychosis , management per psych urine drug screen negative chronic neck pain naprosyn 500 mg po PRN BID blood work pending thank you for this consultation
[2022-12-01] MEDS: PANTOPRAZOLE 40 MG TABLET PO SCH (08:10)
[2022-12-01] MEDS: lamoTRIgine 100 MG TAB PO SCH (08:10)
[2022-12-01] MEDS: PREGABALIN 75 MG CAP PO SCH ×2 (08:10→21:02)
[2022-12-01] MEDS: busPIRone HCl 5 MG TAB PO SCH ×2 (08:10→21:00)
[2022-12-01] MEDS: tiZANidine 4 MG TAB PO SCH ×2 (08:11→21:02)
[2022-12-01 09:30] LABS: Basophils % (A) 0 %; Eosinophils # (A) 0.2 k/uL (0-0.7); Eosinophils % (A) 3 %; HCT 34.5 % (34.0-46.0); HGB 11.4 gm/dL (11.4-16.0); Lymphocytes # (A) 2.3 k/uL (1.0-4.8); Lymphocytes % (A) 30 %; MCH 34.1 pg (25.0-35.0); MCHC 33.1 g/dL (31.0-37.0); MCV 102.9 fL (80.0-100.0); Macrocytosis Slight; Mean Platelet Volume 7.3; Monocytes # (A) 0.4 k/uL (0-1.0); Monocytes % (A) 5 %; Neutrophils # (A) 4.6 k/uL (1.3-7.7); Neutrophils % (A) 59 %; Platelet Count 229 k/uL (150-450); RBC 3.35 m/uL (3.80-5.40); RDW 12.6 % (11.5-15.5); WBC 7.7 k/uL (3.8-10.6)
[2022-12-01 09:36] LABS: ALT 25 U/L (4-34); AST 40 U/L (14-36); African American GFR (CKD) >90 (>60 ml/min/1.73 sqM); Albumin 3.7 g/dL (3.5-5.0); Alkaline Phosphatase 93 U/L (38-126); Anion Gap 7 mmol/L; Blood Urea Nitrogen 12 mg/dL (7-17); Carbon Dioxide 27 mmol/L (22-30); Chloride 104 mmol/L (98-107); Glucose 143 mg/dL (74-99); Non-African American GFR(CKD) >90 (>60 ml/min/1.73 sqM); Potassium 4.7 mmol/L (3.5-5.1); Sodium 138 mmol/L (137-145); Total Bilirubin 0.7 mg/dL (0.2-1.3); Total Protein 6.6 g/dL (6.3-8.2)
[2022-12-01] MEDS: NICOTINE 14MG/24HR PATCH TRANSDERM SCH (09:53)
[2022-12-01] MEDS: ARIPiprazole 2 MG TAB PO SCH (12:30)
--- NOTE | 2022-12-01 18:38 | P.HP ---
Psychiatric H&P - . H&P Date: 12/01/22 History & Physical: Allergies Allergy/AdvReac Type Severity Reaction Status Date / Time egg yolk Allergy Anaphylaxis Verified 11/30/22 20:48 /Itching Penicillins Allergy Anaphylaxis Verified 11/30/22 20:48 /Itching Sulfa (Sulfonamide Allergy Anaphylaxis Verified 11/30/22 20:48 Antibiotics) /Itching sulfamethoxazole Allergy Anaphylaxis Verified 11/30/22 20:48 [From Bactrim] /Itching trimethoprim [From Bactrim] Allergy Anaphylaxis Verified 11/30/22 20:48 /Itching Vital Signs Temp 97.6 F 11/30/22 23:56 Pulse 66 11/30/22 22:24 Resp 18 11/30/22 23:56 BP 102/65 11/30/22 23:56 Pulse Ox 97 11/30/22 23:56 FiO2 Intake & Output 11/30/22 12/01/22 12/01/22 18:59 06:59 18:59 Weight 72.575 kg 72.688 kg Laboratory Last Values WBC 7.7 k/uL (3.8-10.6) 12/01/22 08:44 RBC 3.35 m/uL (3.80-5.40) L 12/01/22 08:44 Hgb 11.4 gm/dL (11.4-16.0) 12/01/22 08:44 Hct 34.5 % (34.0-46.0) 12/01/22 08:44 MCV 102.9 fL (80.0-100.0) H 12/01/22 08:44 MCH 34.1 pg (25.0-35.0) 12/01/22 08:44 MCHC 33.1 g/dL (31.0-37.0) 12/01/22 08:44 RDW 12.6 % (11.5-15.5) 12/01/22 08:44 Plt Count 229 k/uL (150-450) 12/01/22 08:44 MPV 7.3 12/01/22 08:44 Neutrophils % 59 % 12/01/22 08:44 Lymphocytes % 30 % 12/01/22 08:44 Monocytes % 5 % 12/01/22 08:44 Eosinophils % 3 % 12/01/22 08:44 Basophils % 0 % 12/01/22 08:44 Neutrophils # 4.6 k/uL (1.3-7.7) 12/01/22 08:44 Lymphocytes # 2.3 k/uL (1.0-4.8) 12/01/22 08:44 Monocytes # 0.4 k/uL (0-1.0) 12/01/22 08:44 Eosinophils # 0.2 k/uL (0-0.7) 12/01/22 08:44 Basophils # 0.0 k/uL (0-0.2) 12/01/22 08:44 Macrocytosis Slight 12/01/22 08:44 Sodium 138 mmol/L (137-145) 12/01/22 08:44 Potassium 4.7 mmol/L (3.5-5.1) 12/01/22 08:44 Chloride 104 mmol/L (98-107) 12/01/22 08:44 Carbon Dioxide 27 mmol/L (22-30) 12/01/22 08:44 Anion Gap 7 mmol/L 12/01/22 08:44 BUN 12 mg/dL (7-17) 12/01/22 08:44 Creatinine 0.72 mg/dL (0.52-1.04) 12/01/22 08:44 Est GFR (CKD-EPI)AfAm >90 (>60 ml/min/1.73 sqM) 12/01/22 08:44 Est GFR (CKD-EPI)NonAf >90 (>60 ml/min/1.73 sqM) 12/01/22 08:44 Glucose 143 mg/dL (74-99) H 12/01/22 08:[address] Glu mg/dL 117 12/01/22 08:44 Hemoglobin A1c 5.7 % (0.0-6.0) 12/01/22 08:44 Calcium 9.0 mg/dL (8.4-10.2) 12/01/22 08:44 Total Bilirubin 0.7 mg/dL (0.2-1.3) 12/01/22 08:44 AST 40 U/L (14-36) H 12/01/22 08:44 ALT 25 U/L (4-34) 12/01/22 08:44 Alkaline Phosphatase 93 U/L (38-126) 12/01/22 08:44 Total Protein 6.6 g/dL (6.3-8.2) 12/01/22 08:44 Albumin 3.7 g/dL (3.5-5.0) 12/01/22 08:44 TSH 1.610 mIU/L (0.465-4.680) 12/01/22 08:44 Urine Color Yellow 11/30/22 20:44 Urine Appearance Cloudy (Clear) H 11/30/22 20:44 Urine pH 6.0 (5.0-8.0) 11/30/22 20:44 Ur Specific [place] 1.020 (1.001-1.035) 11/30/22 20:44 Urine Protein Trace (Negative) H 11/30/22 20:44 Urine Glucose (UA) Negative (Negative) 11/30/22 20:44 Urine Ketones Negative (Negative) 11/30/22 20:44 Urine Blood Negative (Negative) 11/30/22 20:44 Urine Nitrite Negative (Negative) 11/30/22 20:44 Urine Bilirubin Negative (Negative) 11/30/22 20:44 Urine Urobilinogen 2.0 mg/dL (<2.0) 11/30/22 20:44 Ur Leukocyte Esterase Negative (Negative) 11/30/22 20:44 Urine RBC 1 /hpf (0-5) 11/30/22 20:44 Urine WBC 5 /hpf (0-5) 11/30/22 20:44 Ur Squamous Epith Cells 18 /hpf (0-4) H 11/30/22 20:44 Urine Bacteria Rare /hpf (None) H 11/30/22 20:44 Urine Mucus Rare /hpf (None) H 11/30/22 20:44 Urine Yeast (Budding) Rare /hpf (None) H 11/30/22 20:44 Urine HCG, Qual Not Detected (Not Detectd) 11/30/22 20:44 Urine Opiates Screen Not Detected (NotDetected) 11/30/22 20:44 Ur Oxycodone Screen Not Detected (NotDetected) 11/30/22 20:44 Urine Methadone Screen Not Detected (NotDetected) 11/30/22 20:44 Ur Propoxyphene Screen Not Detected (NotDetected) 11/30/22 20:44 Ur Barbiturates Screen Not Detected (NotDetected) 11/30/22 20:44 U Tricyclic Antidepress Not Detected (NotDetected) 11/30/22 20:44 Ur Phencyclidine Scrn Not Detected (NotDetected) 11/30/22 20:44 Ur Amphetamines Screen Not Detected (NotDetected) 11/30/22 20:44 U Methamphetamines Scrn Not Detected (NotDetected) 11/30/22 20:44 U Benzodiazepines Scrn Not Detected (NotDetected) 11/30/22 20:44 Urine Cocaine Screen Not Detected (NotDetected) 11/30/22 20:44 U Marijuana (THC) Screen Not Detected (NotDetected) 11/30/22 20:44 Coronavirus (PCR) Not Detected (Not Detectd) 11/30/22 20:44 12/01/22 17:40 Referral data; She was referred to the [facility] complaining of hearing voices which made her feel frightened. She was followed in the community by her psychiatrist at [facility] : change in provider recnetly and the transition may have contributed towards her new onset of psychosis. She was on multiple Rx at the time of admission inclduing Buprenorphine film for pain control of her cervical arthritis (likely diagnosis), lyrica x 150 mg po bid for her pain . General obsevation : she was seen in the office aroudn 9-10:30 am and her case was discussed at some length . The staff did not note any confusional state and she participated at an acceptable level in the unit milieu. She was somewhat drowsy with slowness of motion, hesitancy in her speech output at the time of the interview. No gait disturbance. Chief Complaint: Hearing voices and feeling nervous HPI: She did not reveal that she was recently started on Increased dosage of lyrica 150 mg po bid. Lyrica in susceptiable individuals can trigger psychosis. She found she has an urgent need to be reassessed at the [facility]. Engagement has been sporadic after her regular psychiatrist Dr. Ospina has left the [facility]. She mentioned she has an upcoming appointment to have her medication assessed. She did not identity any specific triggers; No medical complaint. On further inquiry, she may have minimized the impact of her cervical pain on her overall functional level. She may have started on buprenorphone for pain control and nOT for opioid use disorder combined with Lyrica 150 mg po bid. She did not complain of numbness or pain in her extremities. She did not notice that she exhibited slowness and psychomotor retardation. Her speech was labored at times and long latency was evident as if she had thought blocking process. She commented her anxiety and depression have escalated for the past few months; however, no details as to her long list of Rxs. I reviewed her medications; 1. Buspar 15 mg po bid, [id number] mg od and Zoloft 200 mg po can have adverse effect combined with non-psychotropic Rx 2. Zonisamide 200 mg po likely for insomnia and some neurological disorder like dystonia. however, I cannot find any formal neurological consultation 3. Buprenorphoine 12 mg film in the absence of opioid use, she may be prescribed for pain control along with Zaneflex . I do not the opportunity to intervier her to inquire whether she was recently had a change in her Rx leading to acute psychosis. and adverse effect for example, Buspar/Zoloft can have potentiating effect with Lyrica. Nevertheless, further medical evaluatioin may be required. In the session she did not commen ton her pain control. Although she was intact in her orientation, her speech and psychomotor retardation may lead me suspect drug drug interaction may have to be the re-examined in the coming few days. to clarify the underlying cause. She indicated she was highly frightened over the voices in the house> her would veritity her distress. She did not articulate whether the voices came from her family members or friends. She did not regard her voices as intruders and checked her milieu and failed to find any clues . She was not confused at the time of the day. She became more jittery and was brought to the [facility] for further evaluation . "group of people i don't know" : head spin" She may also be visually hallucinating; She later on corrected herself by vaguely referring to her who she for qutie a number of years No Marital conflcit was evident. She did not have suicidla or homicidal ideation. She was cooperative to complete the host of med. evaluations prior to transfer to UNIT. past psychiatric substance use History: to be corroborated with [facility] as her recall was scanty. She was involved with [facility] with diagnossis of DEPRESSIVE disorder psychotic disorder did not enter into her memory repertorie. No history of substance use history. Medical history: as documented she is on HRT estradiol following hysterectomy. She has complaint of back and cervical pain : full details to be reviewed. Zonisamide may have been prescribed by neurologist for headache and other neurolgoical disorder ; details are unknown. At the [facility]. blood work was unremakrable no outstanding medical issue; DRUG DRUG interaction cannot be ruled out MSE. She was dressed appropriately abd requested for more hospital clothes as she was admitted in an emergency basis. Her speech was markedly slow but coherent with poverty of content of speech. Blunted and anxious affect congruent with thought content. She denied any perceptual disturbances no delusion. Constricted range of affect. No suicidal or homicidal ideation. Cog. oriented to place people slightly off to time. marginal insight Diagnosis Rule out Drug related psychosis, tentative Psychosis NOS, major depression with psychotic features related to chronic pain syndrome Managment; She fulfiled the inpatient admisison criteria. She was prepared to stay and to have her Rx. contact to verify her Rx history and currentl living milieu. Rx: I recommend reducing dosage of Zoloft at the present time and to fine tune Lyrica as suggested by her PCP/Pain specialist. Connect with [facility] for follow up. Cognitive testing : COg 3 min test will be administered early next week to rule out any neurocogntive complaint 12/01/22 18:14
[2022-12-02] MEDS: tiZANidine 4 MG TAB PO SCH ×2 (08:50→20:06)
[2022-12-02] MEDS: busPIRone HCl 5 MG TAB PO SCH ×2 (08:50→20:04)
[2022-12-02] MEDS: PANTOPRAZOLE 40 MG TABLET PO SCH (08:50)
[2022-12-02] MEDS: PREGABALIN 75 MG CAP PO SCH (08:50)
[2022-12-02] MEDS: lamoTRIgine 100 MG TAB PO SCH (08:51)
[2022-12-02] MEDS: ARIPiprazole 2 MG TAB PO SCH (08:51)
[2022-12-02] MEDS ORDERED: PREGABALIN 100 MG CAP PO SCH (09:00)
[2022-12-02] MEDS: NICOTINE 14MG/24HR PATCH TRANSDERM SCH (09:18)
[2022-12-02] MEDS ORDERED: BUPRENORPHINE-NALOX 8-2 MG TAB 1 EACH TAB.SUBL SL SCH (11:00)
--- NOTE | 2022-12-02 13:36 | P.PN ---
Subjective Progress Note Date: 12/02/22 Principal diagnosis: Visit depressive disorder unspecified Opiate use disorder in [facility] Chronic pain syndrome by history Subjective/objective data: The patient was seen for a follow-up Patient reports that she is not experiencing any auditory or visual hallucinations at this time Said that she is little bit worried about going into withdrawals but is hoping that the Suboxone will help She denies that she is having suicidal ideations or plans at this time He says that she was getting some outpatient counseling at the [facility] and plans to continue further follow-up with outpatient Mental status examination: (Additional appearance was just woken up from sleep Pleasant overall, Patient appears to have fair hygiene and grooming. Behavior: Patient is seated without any agitated behavior. Pleasant. Cooperative. Speech: Patient's speech is fluent and nonpressured. Mood/Affect: Patient reports their mood is a little depressed, affect is congruent and constricted. Suicidality/Homicidality: Patient denies having any homicidal ideation intent or plan. Denies any suicidal ideations intent or plan Perceptions: Patient denies any visual hallucinations and denies any auditory hallucinations Though content/process: There is no evidence of any delusional thought content and thought process is linear and goal-directed. Memory and concentration: AOX3, grossly intact for the purposes of this session. Can spell "WORLD" backwards Judgment and insight: Fair PLAN: -Patient is admitted under involuntary status to MHU for stabilization of psychiatric symptoms and safety. filed for involuntary process, currently awaiting court and hearing date. -Medications : continue Zoloft 200 mg by mouth daily Lamictal 200 mg daily Suboxone 8/2 sublingual film twice a day. -Ativan and Haldol PRN for agitation/aggression -SW on board for discharge planning. Encourage patient to participate in groups to work on coping skills. Cesar Hemphill M.D. 12/02/2022 Objective - Vital Signs Vital signs: Vital Signs Temp 97.4 F L 12/02/22 05:30 Pulse 65 12/02/22 05:30 Resp 18 12/02/22 05:30 BP 119/58 12/02/22 05:30 Pulse Ox 97 12/02/22 05:30 FiO2 - Labs CBC & Chem 7: 12/01/22 08:44 12/01/22 08:44
[2022-12-02] MEDS: SUBOXONE SUBLINGUAL SCH (14:11)
[2022-12-02] MEDS ORDERED: PREGABALIN 50 MG CAP PO ONE (21:00)
[2022-12-03] MEDS: NICOTINE 14MG/24HR PATCH TRANSDERM SCH (09:24)
[2022-12-03] MEDS: tiZANidine 4 MG TAB PO SCH ×2 (09:26→21:07)
[2022-12-03] MEDS: ARIPiprazole 2 MG TAB PO SCH (09:26)
[2022-12-03] MEDS: lamoTRIgine 100 MG TAB PO SCH (09:27)
[2022-12-03] MEDS: busPIRone HCl 5 MG TAB PO SCH ×2 (09:27→21:06)
[2022-12-03] MEDS: PANTOPRAZOLE 40 MG TABLET PO SCH (09:27)
[2022-12-03] MEDS: PREGABALIN 75 MG CAP PO SCH ×2 (09:27→21:09)
[2022-12-03] MEDS: SUBOXONE SUBLINGUAL SCH ×2 (10:00→13:58)
--- NOTE | 2022-12-03 10:43 | P.PN ---
Subjective Progress Note Date: 12/03/22 Principal diagnosis: Visit depressive disorder unspecified Opiate use disorder in [facility] Chronic pain syndrome by history Subjective/objective data: The patient was seen for a follow-up Patient reports that she is not experiencing any auditory or visual hallucinations at this time Patient continues to wonder as to why she experienced the hallucinations since the last drug use was about a year ago She admits that at that time she was using heroin quite heavily Said that she is little bit worried about going into withdrawals but is hoping that the Suboxone will help She denies that she is having suicidal ideations or plans at this time sHe says that she was getting some outpatient counseling at the [facility] and plans to continue further follow-up with outpatient Mental status examination: (Additional appearance was just woken up from sleep Pleasant overall, Patient appears to have fair hygiene and grooming. Behavior: Patient is seated without any agitated behavior. Pleasant. Cooperative. Speech: Patient's speech is fluent and nonpressured. Mood/Affect: Patient reports their mood is a little depressed, affect is congruent and constricted. Suicidality/Homicidality: Patient denies having any homicidal ideation intent or plan. Denies any suicidal ideations intent or plan Perceptions: Patient denies any visual hallucinations and denies any auditory hallucinations Though content/process: There is no evidence of any delusional thought content and thought process is linear and goal-directed. Memory and concentration: AOX3, grossly intact for the purposes of this session. Can spell "WORLD" backwards Judgment and insight: Fair Diagnostic impression: Major depressive disorder acute Rule out bipolar disorder Rule out pervasive persistent hallucinogenic disorder/PPhD Opiate use disorder in [facility] Alcohol use disorder PLAN: Patient was educated about the hallucinations that she may experienced even after a year may be related to the PPHD -Patient is admitted under involuntary status to MHU for stabilization of psychiatric symptoms and safety. filed for involuntary process, currently awaiting court and hearing date. -Medications : continue Zoloft 200 mg by mouth daily Lamictal 200 mg daily Suboxone 8/2 sublingual film twice a day. -Ativan and Haldol PRN for agitation/aggression -SW on board for discharge planning. Encourage patient to participate in groups to work on coping skills. Cesar Hemphill M.D. 12/03/2022 Objective - Vital Signs Vital signs: Vital Signs Temp 97.5 F L 12/03/22 06:57 Pulse 89 12/03/22 09:31 Resp 14 12/03/22 06:57 BP 106/59 12/03/22 09:31 Pulse Ox 97 12/02/22 05:30 FiO2 Intake & Output 12/02/22 12/03/22 12/03/22 18:59 06:59 18:59 Weight 72.4 kg - Labs CBC & Chem 7: 12/01/22 08:44 12/01/22 08:44
[2022-12-03] MEDS: LORazepam 1 MG TAB PO PRN (21:09)
[2022-12-04] MEDS: ARIPiprazole 2 MG TAB PO SCH (07:58)
[2022-12-04] MEDS: PREGABALIN 75 MG CAP PO SCH ×2 (07:58→19:53)
[2022-12-04] MEDS: busPIRone HCl 5 MG TAB PO SCH ×2 (07:59→19:53)
[2022-12-04] MEDS: lamoTRIgine 100 MG TAB PO SCH (07:59)
[2022-12-04] MEDS: PANTOPRAZOLE 40 MG TABLET PO SCH (07:59)
[2022-12-04] MEDS: tiZANidine 4 MG TAB PO SCH ×2 (08:00→19:53)
[2022-12-04] MEDS: SUBOXONE SUBLINGUAL SCH ×2 (09:20→13:44)
[2022-12-04] MEDS: NICOTINE 14MG/24HR PATCH TRANSDERM SCH (09:22)
--- NOTE | 2022-12-04 11:14 | P.PN ---
Progress Note - Text Progress Note Date: 12/04/22 Interval History: Patient was seen attending group and was directable and agreeable to speak with credit underwriter in the office. Currently, the patient is not reporting any suicidal or homicidal ideation, intention, and/or plan. She is not reporting any auditory or visual hallucinations. She is not reporting any paranoia or other delusions. She has been adherent with her medication and is not endorsing any significant side effects. She reports no issues regarding her sleep or her appetite. She does describe acute psychotic symptoms in the form of auditory and visual hallucinations prior to this admission and suspects that her medications had a role to play in this that she has never experienced these problems before. Since her medication adjustments, the patient reports that she is feeling significantly better and has not expressed any perceptual abnormalities. Mental Status Exam: General Appearance: Patient appears to be stated age is alert, directable, and cooperative. Behavior: Patient is calmly seated without any agitated behavior. Speech: Patient's speech is fluent and nonpressured. Mood/Affect: Mood is improving mildly, affect is congruent and bright. Suicidality/Homicidality: Patient denies having any suicidal or homicidal ideation intent or plan. Perceptions: Patient denies any visual hallucinations and denies any auditory hallucinations Though content/process: There is no evidence of any delusional thought content and thought process is linear and goal-directed. Memory and concentration: AOX3, grossly intact for the purposes of this session Judgment and insight: Improving mildly Vital Signs Temp 97.3 F L 12/04/22 06:30 Pulse 71 12/04/22 06:30 Resp 14 12/04/22 06:30 BP 119/65 12/04/22 06:30 Pulse Ox 97 12/02/22 05:30 FiO2 Intake & Output 12/03/22 12/04/22 12/04/22 18:59 06:59 18:59 Weight 72.4 kg Assessment Acute psychotic episode Depressive disorder secondary to general medical condition Plan: -Patient continues to meet criteria for inpatient psychiatric admission for symptom stabilization and safety. Patient has signed adult voluntary form and medication consent and was placed in patient's chart. -Medications: Increase Abilify to 5 mg by mouth daily for psychosis and mood augmentation BuSpar 15 mg by mouth twice a day for anxiety Lamictal 200 mg daily for mood stabilization -When necessary Ativan and Haldol for agitation/aggression. -NRT - nicotine patch -SW on board for discharge planning. Encouraged the patient to participate in milieu.
[2022-12-04] MEDS: LORazepam 1 MG TAB PO PRN (19:54)
[2022-12-05 06:47] VITALS: RESP 16; TEMP 98.2
[2022-12-05] MEDS: NICOTINE 14MG/24HR PATCH TRANSDERM SCH (08:42)
[2022-12-05] MEDS: lamoTRIgine 100 MG TAB PO SCH (08:42)
[2022-12-05] MEDS: PANTOPRAZOLE 40 MG TABLET PO SCH (08:42)
[2022-12-05] MEDS: busPIRone HCl 5 MG TAB PO SCH (08:43)
[2022-12-05] MEDS: tiZANidine 4 MG TAB PO SCH (08:43)
[2022-12-05] MEDS: SUBOXONE SUBLINGUAL SCH (08:43)
[2022-12-05] MEDS: PREGABALIN 75 MG CAP PO SCH (08:44)
[2022-12-05 08:45] VITALS: BP 107/54; PULSE 88
[2022-12-05] MEDS ORDERED: ARIPiprazole 5 MG TAB PO SCH (09:00)
[2022-12-05] MEDS ORDERED: estradioL 1 MG TAB PO SCH (09:00)
--- NOTE | 2022-12-05 12:05 | P.DS ---
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 She was followed in the community by her psychiatrist at [facility] [address] : change in provider recnetly and the transition may have contributed towards her new onset of psychosis. She was on multiple Rx at the time of admission inclduing Buprenorphine film for pain control of her cervical arthritis (likely diagnosis), lyrica x 150 mg po bid for her pain . General obsevation : she was seen in the office aroudn 9-10:30 am and her case was discussed at some length . The staff did not note any confusional state and she participated at an acceptable level in the unit milieu. She was somewhat drowsy with slowness of motion, hesitancy in her speech output at the time of the interview. No gait disturbance. Chief Complaint: Hearing voices and feeling nervous HPI: She did not reveal that she was recently started on Increased dosage of lyrica 150 mg po bid. Lyrica in susceptiable individuals can trigger psychosis. She found she has an urgent need to be reassessed at the [facility]. Engagement has been sporadic after her regular psychiatrist Dr. Ospina has left the [facility]. She mentioned she has an upcoming appointment to have her medication assessed. She did not identity any specific triggers; No medical complaint. On further inquiry, she may have minimized the impact of her cervical pain on her overall functional level. She may have started on buprenorphone for pain control and nOT for opioid use disorder combined with Lyrica 150 mg po bid. She did not complain of numbness or pain in her extremities. She did not notice that she exhibited slowness and psychomotor retardation. Her speech was labored at times and long latency was evident as if she had thought blocking process. She commented her anxiety and depression have escalated for the past few months; however, no details as to her long list of Rxs. I reviewed her medications; 1. Buspar 15 mg po bid, [id number] mg od and Zoloft 200 mg po can have adverse effect combined with non-psychotropic Rx 2. Zonisamide 200 mg po likely for insomnia and some neurological disorder like dystonia. however, I cannot find any formal neurological consultation 3. Buprenorphoine 12 mg film in the absence of opioid use, she may be prescribed for pain control along with Zaneflex . I do not the opportunity to intervier her to inquire whether she was recently had a change in her Rx leading to acute psychosis. and adverse effect for example, Buspar/Zoloft can have potentiating effect with Lyrica. Nevertheless, further medical evaluatioin may be required. In the session she did not commen ton her pain control. Although she was intact in her orientation, her speech and psychomotor retardation may lead me suspect drug drug interaction may have to be the re-examined in the coming few days. to clarify the underlying cause. She indicated she was highly frightened over the voices in the house> her would veritity her distress. She did not articulate whether the voices came from her family members or friends. She did not regard her voices as intruders and checked her milieu and failed to find any clues . She was not confused at the time of the day. She became more jittery and was brought to the [facility] for further evaluation . "group of people i don't know" : head spin" She may also be visually hallucinating; She later on corrected herself by vaguely referring to her who she for qutie a number of years No Marital conflcit was evident. She did not have suicidla or homicidal ideation. She was cooperative to complete the host of med. evaluations prior to transfer to UNIT. past psychiatric substance use History: to be corroborated with [facility] [place] . as her recall was scanty. She was involved with [facility] with diagnossis of DEPRESSIVE disorder psychotic disorder did not enter into her memory repertorie. No history of substance use history. Hospital course: Upon admission to the unit patient was initially with markedly slow speech, poverty of content of speech, and a blunted and anxious affect. Patient was however directable and agreeable to commence treatment. Patient got along well with other patients on the unit and followed unit protocol. Patient was compliant with the medications and denied any side effects throughout hospital course. Patient was started on Abilify for psychosis and her Zoloft was discontinued due to concerns of drug-drug interactions contributing to acute psychosis. Patient spoke of her stressors and engaged in therapy both group and individual. Patient was also seen by medical team for history and physical exam. On a regimen of Abilify, BuSpar, and Lamictal, the patient displayed significant improvement in regards to her target symptoms psychomotor slowing and psychosis. She became more future and goal oriented and developed better insight and judgment. On the day of discharge, the patient is not reporting any suicidal or homicidal ideation, intention, and/or plan. She denies any access to firearms or other weapons. She reports no auditory or visual hallucinations. She denies any paranoia or other delusions. She is much more spontaneous in speech and has a wider range of affect. The patient reports that she is feeling overall significantly better. The patient was counseled at length on importance of medication adherence appropriate outpatient follow-up. The patient does not have a significant substance use history however was counseled great length on abstaining from all substances including alcohol, tobacco, marijuana, and all illicit drugs. She is not reporting any chest pain, short of breath, palpitations, akathisia, tardive dyskinesia, or any other medical issues or concerns on the day of discharge. Prior to discharge a family meeting will be arranged by social sciences research scientist to answer any questions and ensure safety upon discharge. Mental status exam: General Appearance: Patient appears to be stated age is alert, pleasant, and cooperative. Patient is in no acute distress and has fair hygiene and grooming Behavior: Patient is calmly seated without any agitated behavior. Speech: Patient's speech is fluent and nonpressured. Mood/Affect: Patient reports their mood is "much better", affect is congruent and euthymic to bright. Suicidality/Homicidality: Patient denies having any suicidal or homicidal ideation intent or plan. Perceptions: Patient denies any auditory or visual hallucinations. Though content/process: There is no evidence of any delusional thought content and thought process is linear and goal-directed. She is future and goal oriented. Memory and concentration: AOX3, grossly intact for the purposes of this session. Can spell "WORLD" backwards correctly. 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 -Continue medications: Abilify 5 mg by mouth daily for psychosis/mood augmentation BuSpar 15 mg twice a day for anxiety Lamictal 200 mg by mouth daily for mood stabilization -Patient was counseled on the need for medication compliance and appropriate follow-up at mental health and also primary care for medical issues. Patient verbalized understanding and agreed. -Social work to arrange for and conduct family meeting to ensure safety upon discharge and answer any questions/concerns. Social work also to arrange for patients follow up appointments for psychiatric care along with follow up with primary care provider. -Patient counseled on abstaining from recreational drugs and marijuana and alcohol. Was informed/educated on the adverse effects on their physical and mental health. Patient verbally agreed and understood. -Patient was instructed to return to the hospital or seek immediate medical care if their psychiatric or medical symptoms do worsen or reoccur. -Psychoeducation and supportive therapy provided to patient. Risks and benefits of pharmacological treatment versus the risks and benefits of nontreatment weighed and discussed. Informed consent discussion held. Common side effects of psychotropics discussed such as, but not limited to headache, GI disturbance, sexual dysfunction, movement disorders, sedation, and orthostatic hypotension. Life threatening and blackbox warnings of prescribed medications also discussed. Potential risks of operating a vehicle or heavy machinery discussed with patient at length. Advised on importance of compliance and a reliable and responsible manner. Patient advised to review FDA consumer labeling of all medications prior to taking. Patient verbalized understanding of potential risks, and agrees with current treatment plan. Patient advised to medically contact physician/emergency personnel if any acute changes in condition occur. Vital Signs Temp 98.2 F 12/05/22 06:00 Pulse 88 12/05/22 08:45 Resp 16 12/05/22 06:00 BP 107/54 12/05/22 08:45 Pulse Ox 95 12/05/22 06:00 FiO2 Laboratory Results WBC 7.7 k/uL (3.8-10.6) 12/01/22 08:44 RBC 3.35 m/uL (3.80-5.40) L 12/01/22 08:44 Hgb 11.4 gm/dL (11.4-16.0) 12/01/22 08:44 Hct 34.5 % (34.0-46.0) 12/01/22 08:44 MCV 102.9 fL (80.0-100.0) H 12/01/22 08:44 MCH 34.1 pg (25.0-35.0) 12/01/22 08:44 MCHC 33.1 g/dL (31.0-37.0) 12/01/22 08:44 RDW 12.6 % (11.5-15.5) 12/01/22 08:44 Plt Count 229 k/uL (150-450) 12/01/22 08:44 MPV 7.3 12/01/22 08:44 Neutrophils % 59 % 12/01/22 08:44 Lymphocytes % 30 % 12/01/22 08:44 Monocytes % 5 % 12/01/22 08:44 Eosinophils % 3 % 12/01/22 08:44 Basophils % 0 % 12/01/22 08:44 Neutrophils # 4.6 k/uL (1.3-7.7) 12/01/22 08:44 Lymphocytes # 2.3 k/uL (1.0-4.8) 12/01/22 08:44 Monocytes # 0.4 k/uL (0-1.0) 12/01/22 08:44 Eosinophils # 0.2 k/uL (0-0.7) 12/01/22 08:44 Basophils # 0.0 k/uL (0-0.2) 12/01/22 08:44 Macrocytosis Slight 12/01/22 08:44 Sodium 138 mmol/L (137-145) 12/01/22 08:44 Potassium 4.7 mmol/L (3.5-5.1) 12/01/22 08:44 Chloride 104 mmol/L (98-107) 12/01/22 08:44 Carbon Dioxide 27 mmol/L (22-30) 12/01/22 08:44 Anion Gap 7 mmol/L 12/01/22 08:44 BUN 12 mg/dL (7-17) 12/01/22 08:44 Creatinine 0.72 mg/dL (0.52-1.04) 12/01/22 08:44 Est GFR (CKD-EPI)AfAm >90 (>60 ml/min/1.73 sqM) 12/01/22 08:44 Est GFR (CKD-EPI)NonAf >90 (>60 ml/min/1.73 sqM) 12/01/22 08:44 Glucose 143 mg/dL (74-99) H 12/01/22 08:[address] Glu mg/dL 117 12/01/22 08:44 Hemoglobin A1c 5.7 % (0.0-6.0) 12/01/22 08:44 Calcium 9.0 mg/dL (8.4-10.2) 12/01/22 08:44 Total Bilirubin 0.7 mg/dL (0.2-1.3) 12/01/22 08:44 AST 40 U/L (14-36) H 12/01/22 08:44 ALT 25 U/L (4-34) 12/01/22 08:44 Alkaline Phosphatase 93 U/L (38-126) 12/01/22 08:44 Total Protein 6.6 g/dL (6.3-8.2) 12/01/22 08:44 Albumin 3.7 g/dL (3.5-5.0) 12/01/22 08:44 TSH 1.610 mIU/L (0.465-4.680) 12/01/22 08:44 Urine Color Yellow 11/30/22 20:44 Urine Appearance Cloudy (Clear) H 11/30/22 20:44 Urine pH 6.0 (5.0-8.0) 11/30/22 20:44 Ur Specific [place] 1.020 (1.001-1.035) 11/30/22 20:44 Urine Protein Trace (Negative) H 11/30/22 20:44 Urine Glucose (UA) Negative (Negative) 11/30/22 20:44 Urine Ketones Negative (Negative) 11/30/22 20:44 Urine Blood Negative (Negative) 11/30/22 20:44 Urine Nitrite Negative (Negative) 11/30/22 20:44 Urine Bilirubin Negative (Negative) 11/30/22 20:44 Urine Urobilinogen 2.0 mg/dL (<2.0) 11/30/22 20:44 Ur Leukocyte Esterase Negative (Negative) 11/30/22 20:44 Urine RBC 1 /hpf (0-5) 11/30/22 20:44 Urine WBC 5 /hpf (0-5) 11/30/22 20:44 Ur Squamous Epith Cells 18 /hpf (0-4) H 11/30/22 20:44 Urine Bacteria Rare /hpf (None) H 11/30/22 20:44 Urine Mucus Rare /hpf (None) H 11/30/22 20:44 Urine Yeast (Budding) Rare /hpf (None) H 11/30/22 20:44 Urine HCG, Qual Not Detected (Not Detectd) 11/30/22 20:44 Urine Opiates Screen Not Detected (NotDetected) 11/30/22 20:44 Ur Oxycodone Screen Not Detected (NotDetected) 11/30/22 20:44 Urine Methadone Screen Not Detected (NotDetected) 11/30/22 20:44 Ur Propoxyphene Screen Not Detected (NotDetected) 11/30/22 20:44 Ur Barbiturates Screen Not Detected (NotDetected) 11/30/22 20:44 Lamotrigine 3.8 ug/mL (2.0-15.0) 12/01/22 08:44 U Tricyclic Antidepress Not Detected (NotDetected) 11/30/22 20:44 Ur Phencyclidine Scrn Not Detected (NotDetected) 11/30/22 20:44 Ur Amphetamines Screen Not Detected (NotDetected) 11/30/22 20:44 U Methamphetamines Scrn Not Detected (NotDetected) 11/30/22 20:44 U Benzodiazepines Scrn Not Detected (NotDetected) 11/30/22 20:44 Urine Cocaine Screen Not Detected (NotDetected) 11/30/22 20:44 U Marijuana (THC) Screen Not Detected (NotDetected) 11/30/22 20:44 Coronavirus (PCR) Not Detected (Not Detectd) 11/30/22 20:44 Allergies Allergy/AdvReac Type Severity Reaction Status Date / Time egg yolk Allergy Anaphylaxis Verified 11/30/22 20:48 /Itching Penicillins Allergy Anaphylaxis Verified 11/30/22 20:48 /Itching Sulfa (Sulfonamide Allergy Anaphylaxis Verified 11/30/22 20:48 Antibiotics) /Itching sulfamethoxazole Allergy Anaphylaxis Verified 11/30/22 20:48 [From Bactrim] /Itching trimethoprim [From Bactrim] Allergy Anaphylaxis Verified 11/30/22 20:48 /Itching Patient Condition at Discharge: Stable Plan - Discharge Summary Discharge Rx Participant: No New Discharge Prescriptions: New ARIPiprazole [Abilify] 5 mg PO DAILY 30 Days #30 tab Continue Ondansetron Odt [Zofran ODT] 4 mg PO BID PRN PRN Reason: Nausea Zonisamide [Zonegran] 200 mg PO DAILY@1600 tiZANidine [Zanaflex] 4 mg PO BID@0430,1600 Omeprazole 20 mg PO BID@0430,1600 Pregabalin [Lyrica] 150 mg PO BID@0430,1600 busPIRone HCL 15 mg PO BID@0430,1600 30 Days #60 tab estradioL [Estrace] 1 mg PO DAILY@0430 Buprenorphine HCl/Naloxone HCl [Suboxone 8 mg-2 mg Sl Film] 0.5 film SL DAILY@1600 Buprenorphine HCl/Naloxone HCl [Suboxone 8 mg-2 mg Sl Film] 1 film SL BID@0430,1200 lamoTRIgine [LaMICtal] 200 mg PO DAILY@0430 30 Days #30 tab Discontinued Sertraline [Zoloft] 200 mg PO DAILY@0430 Discharge Medication List Buprenorphine HCl/Naloxone HCl [Suboxone 8 mg-2 mg Sl Film] 0.5 film SL DAILY@1600 11/30/22 [History] Buprenorphine HCl/Naloxone HCl [Suboxone 8 mg-2 mg Sl Film] 1 film SL BID@0430,1200 11/30/22 [History] Omeprazole 20 mg PO BID@0430,1600 11/30/22 [History] Ondansetron Odt [Zofran ODT] 4 mg PO BID PRN 11/30/22 [History] Pregabalin [Lyrica] 150 mg PO BID@0430,1600 11/30/22 [History] Zonisamide [Zonegran] 200 mg PO DAILY@1600 11/30/22 [History] estradioL [Estrace] 1 mg PO DAILY@0430 11/30/22 [History] tiZANidine [Zanaflex] 4 mg PO BID@0430,1600 11/30/22 [History] ARIPiprazole [Abilify] 5 mg PO DAILY 30 Days #30 tab 12/05/22 [Rx] busPIRone HCL 15 mg PO BID@0430,1600 30 Days #60 tab 12/05/22 [Rx] lamoTRIgine [LaMICtal] 200 mg PO DAILY@0430 30 Days #30 tab 12/05/22 [Rx] Follow up Appointment(s)/Referral(s): Evens Garcia MD [Primary Care Provider] - 1-2 days Patient Instructions/Handouts: Anxiety (GEN), Psychotic Disorder (DC) Activity/Diet/Wound Care/Special Instructions: Avoid the use of street drugs and alcohol. Take all medications as prescribed. When you are in need of refills on your medications, please contact your medical provider and/or outpatient psychiatrist to have this done. Please go to scheduled outpatient appointments for aftercare treatment. If symptoms return or become worse, call the crisis line at and/or go to the nearest emergency room for evaluation. Discharge Disposition: HOME SELF-CARE
== END 2022-12-05 13:00 | disposition home or self-care (01) | DRG 773 ==
LOC: EC 17:22 → 3MHU 22:09
PROVIDERS: ADMIT Psychiatry & Neurology Psychiatry; ATTEND Psychiatry & Neurology Psychiatry
DX: F11.159 Opioid abuse with opioid-induced psychotic disorder, unspecified (principal); D75.89 Other specified diseases of blood and blood-forming organs; F10.10 Alcohol abuse, uncomplicated; F17.210 Nicotine dependence, cigarettes, uncomplicated; G24.9 Dystonia, unspecified; F41.9 Anxiety disorder, unspecified; G89.4 Chronic pain syndrome; G47.00 Insomnia, unspecified; M47.812 Spondylosis without myelopathy or radiculopathy, cervical region; Z79.899 Other long term (current) drug therapy; Z90.710 Acquired absence of both cervix and uterus; Z79.3 Long term (current) use of hormonal contraceptives; Z71.51 Drug abuse counseling and surveillance of drug abuser; Z86.14 Personal history of Methicillin resistant Staphylococcus aureus infection; F40.240 Claustrophobia; Z28.311 Partially vaccinated for COVID-19; Z88.0 Allergy status to penicillin; Z91.012 Allergy to eggs; Z88.2 Allergy status to sulfonamides; F31.9 Bipolar disorder, unspecified; Z28.21 Immunization not carried out because of patient refusal
CPT/HCPCS: 80053; 80175; 80306; 81001; 81025; 82075; 83036; 84443; 85025; 87635; 99285

== ENCOUNTER 2022-12-23 00:56 | Emergency (ER) | payer OTHER ==
[2022-12-23] MEDS ORDERED: KETOROLAC 15 MG/ML 1 ML VIAL IM STA (01:07)
--- NOTE | 2022-12-23 01:41 | XR ---
EXAM: XR Right Wrist Complete, 3 or More Views CLINICAL HISTORY: ITS.REASON XR Reason: injury TECHNIQUE: Frontal, lateral and oblique views of the right wrist. COMPARISON: No relevant prior studies available. FINDINGS: Bones/joints: Acute, comminuted, nondisplaced intra-articular fracture of the distal radius. Acute minimally displaced fracture through the base of the ulnar styloid. No other fractures. No dislocation. Soft tissues: Soft tissue swelling. No radiopaque foreign body. IMPRESSION: 1. Acute, comminuted, nondisplaced intra-articular fracture of the distal radius. 2. Acute minimally displaced fracture through the base of the ulnar styloid.
--- NOTE | 2022-12-23 02:05 | ED ---
Upper Extremity HPI - General Chief Complaint: Extremity Injury, Upper Stated Complaint: Fall Time Seen by Provider: 12/23/22 01:02 Source: family Mode of arrival: ambulatory Limitations: no limitations - History of Present Illness Initial Comments: 47-year-old female presenting with chief complaint of right wrist pain. Patient states that she fell backwards onto an outstretched hand. She states that "I hurt my wrist snap". She is having significant pain and does not have full range of motion at this time secondary to pain. No discoloration, pulses are intact. - Related Data Home Medications Medication Instructions Recorded Confirmed Buprenorphine HCl/Naloxone HCl 0.5 film SL DAILY@1600 11/30/22 11/30/22 [Suboxone 8 mg-2 mg Sl Film] Buprenorphine HCl/Naloxone HCl 1 film SL BID@0430,1200 11/30/22 11/30/22 [Suboxone 8 mg-2 mg Sl Film] Omeprazole 20 mg PO BID@0430,1600 11/30/22 11/30/22 Ondansetron Odt [Zofran ODT] 4 mg PO BID PRN 11/30/22 11/30/22 Pregabalin [Lyrica] 150 mg PO BID@0430,1600 11/30/22 11/30/22 Zonisamide [Zonegran] 200 mg PO DAILY@1600 11/30/22 11/30/22 estradioL [Estrace] 1 mg PO DAILY@0430 11/30/22 11/30/22 tiZANidine [Zanaflex] 4 mg PO BID@0430,1600 11/30/22 11/30/22 Previous Rx's Medication Instructions Recorded ARIPiprazole [Abilify] 5 mg PO DAILY 30 Days #30 tab 12/05/22 busPIRone HCL 15 mg PO BID@0430,1600 30 Days #60 12/05/22 tab lamoTRIgine [LaMICtal] 200 mg PO DAILY@0430 30 Days #30 12/05/22 tab Allergies Allergy/AdvReac Type Severity Reaction Status Date / Time egg yolk Allergy Anaphylaxis Verified 12/23/22 01:01 /Itching Penicillins Allergy Anaphylaxis Verified 12/23/22 01:01 /Itching Sulfa (Sulfonamide Allergy Anaphylaxis Verified 12/23/22 01:01 Antibiotics) /Itching sulfamethoxazole Allergy Anaphylaxis Verified 12/23/22 01:01 [From Bactrim] /Itching trimethoprim [From Bactrim] Allergy Anaphylaxis Verified 12/23/22 01:01 /Itching Review of Systems ROS Statement: Those systems with pertinent positive or pertinent negative responses have been documented in the HPI. ROS Other: All systems not noted in ROS Statement are negative. Past Medical History Past Medical History: No Reported History Additional Past Medical History / Comment(s): DENTAL ABSCESS History of Any Multi-Drug Resistant Organisms: MRSA Date of last positivie culture/infection: 08/07/18 MDRO Source:: TOE Past Surgical History: Hysterectomy, Orthopedic Surgery, Tubal Ligation Additional Past Surgical History / Comment(s): RIGHT LEG, AROUND 2001; UTERUS AND OVARIES REMOVED MORE THAN TEN YEARS AGO DUE TO CYSTIC FIBROIDS AND ENDOMETRIOSIS, adrianna knees Past Anesthesia/Blood Transfusion Reactions: No Reported Reaction Additional Past Anesthesia/Blood Transfusion Reaction / Comment(s): clausterphobia. pt has never received a blood transfusion Past Psychological History: Anxiety, Bipolar, Depression, PTSD Smoking Status: Current every day smoker Past Alcohol Use History: None Reported Past Drug Use History: Heroin - Past Family History Mother Family Medical History: Cancer Additional Family Medical History / Comment(s): LUNG CA FROM SMOKING; GREAT GRANDMA WAS DIABETIC Father History Unknown: Yes Additional Family Medical History / Comment(s): FATHER AT AGE OF 37 DUE TO RHEUMATIC FEVER COMPLICATIONS General Exam Limitations: no limitations General appearance: alert, in no apparent distress Head exam: Present: atraumatic, normocephalic, normal inspection Eye exam: Present: normal appearance, PERRL, EOMI. Absent: scleral icterus, conjunctival injection, periorbital swelling Neck exam: Present: normal inspection, full ROM Extremities exam: Present: tenderness, normal capillary refill, joint swelling. Absent: full ROM Neurological exam: Present: alert, oriented X3, CN II-XII intact Psychiatric exam: Present: normal affect, normal mood Skin exam: Present: warm, dry, intact, normal color. Absent: rash Course Vital Signs 12/23/22 12/23/22 00:59 02:13 Temperature 97.9 F 98.2 F Pulse Rate 83 98 Respiratory 18 20 Rate Blood Pressure 146/82 116/73 O2 Sat by Pulse 97 98 Oximetry Medical Decision Making - Medical Decision Making Was pt. sent in by a medical professional or institution (Dr., PA, SENIOR ENVIRONMENTAL SCIENTIST, urgent care, hospital, or [facility]...) When possible be specific @ -No Did you speak to anyone other than the patient for history (EMS, parent, family, police, friend...)? What history was obtained from this source @ -No Did you review nursing and triage notes (agree or disagree)? Why? @ -I reviewed and agree with nursing and triage notes Were old charts reviewed (outside hosp., previous admission, EMS record, old EKG, old radiological studies, urgent care reports/EKG's, [facility] records)? Report findings @ -No old charts were reviewed Differential Diagnosis (chest pain, altered mental status, abdominal pain women, abdominal pain men, vaginal bleeding, weakness, fever, dyspnea, syncope, headache, dizziness, GI bleed, back pain, seizure, CVA, palpatations, mental health, musculoskeletal)? @ -Differential Musculoskeletal Muscular strain, contusion, ligament sprain, fracture, arthritis, septic arthri tis, bursitis, cellulitis, muscle spasm, nerve compression, DVT, arterial occlusion, herpes zoster, electrolyte abnormality, tumor.... This is not meant to be in all inclusive list EKG interpreted by me (3pts min.). @ -As above X-rays interpreted by me (1pt min.). @ -X-ray show acute comminuted nondisplaced intra-articular fracture of the distal radius and acute minimally displaced fracture through the base of the ulnar styloid CT interpreted by me (1pt min.). @ -None done U/S interpreted by me (1pt. min.). @ -None done What testing was considered but not performed or refused? (CT, X-rays, U/S, labs)? Why? @ -None What meds were considered but not given or refused? Why? @ -None Did you discuss the management of the patient with other professionals (professionals i.e. GUILLE Norton, SENIOR ENVIRONMENTAL SCIENTIST, lab, RT, psych nurse, social science instructor, mold holder, teacher, loan officer assistant, case work aide)? Give summary @ -No Was smoking cessation discussed for >3mins.? @ -No Was critical care preformed (if so, how long)? @ -No Were there social determinants of health that impacted care today? How? (Homelessness, low income, unemployed, alcoholism, drug addiction, transportation, low edu. Level, literacy, decrease access to med. care, skilled nursing, rehab)? @ -No Was there de-escalation of care discussed even if they declined (Discuss DNR or withdrawal of care, Hospice)? DNR status @ -No What co-morbidities impacted this encounter? (DM, HTN, Smoking, COPD, CAD, Cancer, CVA, ARF, Chemo, Hep., AIDS, mental health diagnosis, sleep apnea, morbid obesity)? @ -None Was patient admitted / discharged? Hospital course, mention meds given and route, prescriptions, significant lab abnormalities, going to OR and other pertinent info. @ -47-year-old female presenting for evaluation after right wrist injury. Wrist fracture found on x-ray. Patient is placed in a sugar tong splint and instructed to follow up with orthopedics. Follow-up with PCP. Report back to ER with any new or worsening symptoms. Discussed return parameters and answered all questions. Patient conveyed verbal understanding and agreed to the plan. I discussed this case in detail with my attending Dr. Hardy Undiagnosed new problem with uncertain prognosis? @ -No Drug Therapy requiring intensive monitoring for toxicity (Heparin, Nitro, Insulin, Cardizem)? @ -No Were any procedures done? @ -Patient placed in sugar tong splint Diagnosis/symptom? @ -Wrist fracture Acute, or Chronic, or Acute on Chronic? @ -Acute Uncomplicated (without systemic symptoms) or Complicated (systemic symptoms)? @ -Uncomplicated Side effects of treatment? @ -No Exacerbation, Progression, or Severe Exacerbation? @ -No Poses a threat to life or bodily function? How? (Chest pain, [place], [place], pneumonia, PE, COPD, DKA, ARF, appy, cholecystitis, CVA, Diverticulitis, Homicidal, Suicidal, threat to staff... and all critical care pts) @ -No Disposition Clinical Impression: Wrist fracture Disposition: HOME SELF-CARE Condition: Good Instructions (If sedation given, give patient instructions): Wrist Fracture in Adults (ED) Additional Instructions: Follow-up with orthopedics. Report back to ER with any new or worsening symptoms. Take Motrin and Tylenol for pain control. Is patient prescribed a controlled substance at d/c from ED?: No Referrals: Evens Garcia MD [Primary Care Provider] - 1-2 days Mykel Cheney DO [Doctor of Osteopathic Medicine] - 1-2 days Time of Disposition: 02:05
[2022-12-23 02:18] VITALS: BP 116/73; PULSE 98; RESP 20; TEMP 98.2
== END 2022-12-23 02:14 | disposition home or self-care (01) ==
LOC: EC 00:56
DX: S52.611A Displaced fracture of right ulna styloid process, initial encounter for closed fracture (principal); S52.571A Other intraarticular fracture of lower end of right radius, initial encounter for closed fracture; F31.9 Bipolar disorder, unspecified; F41.9 Anxiety disorder, unspecified; F17.200 Nicotine dependence, unspecified, uncomplicated; Z88.0 Allergy status to penicillin; Z88.1 Allergy status to other antibiotic agents; Z88.2 Allergy status to sulfonamides; Z91.012 Allergy to eggs; Z79.899 Other long term (current) drug therapy; W18.30XA Fall on same level, unspecified, initial encounter
CPT/HCPCS: 73110; 99284; 96372; 29125; J1885

== ENCOUNTER → 2023-01-01 | Outpatient (CLI) | payer OTHER ==
[2023-01-01 21:00] LABS: Anion Gap 9.6 mmol/L (4.00-12.00); Carbon Dioxide 22.4 mmol/L (21.6-31.8); Potassium 5.4 mmol/L (3.5-5.5)
[2023-01-01 22:50] LABS: Basophils # (A) 0.02 X 10*3/uL (0.00-0.10); Basophils % (A) 0.4 %; Eosinophils # (A) 0.09 X 10*3/uL (0.04-0.35); Eosinophils % (A) 1.7 %; HCT 40.2 % (37.2-46.3); Lymphocytes % (A) 39.1 %; MCH 33.7 pg (27.0-32.0); MCHC 32.3 d/dL (32.0-37.0); MCV 104.1 FL (80.0-97.0); Mean Platelet Volume 10.1 FL (9.5-12.2); Monocytes # (A) 0.37 X 10*3/uL (0.20-1.00); Monocytes % (A) 6.9 %; NRBC Per 100 WBC 0 X 10*3/uL (0.00-0.01); Neutrophils # (A) 2.78 X 10*3/uL (1.80-7.70); Neutrophils % (A) 51.7 %; Platelet Count 180 X 10*3/uL (140-440); RBC 3.86 X 10*6/uL (4.10-5.20); RDW 13.7 % (11.5-14.5); WBC 5.37 X 10*3/uL (4.50-10.00)
== END | disposition home or self-care (01) ==
LOC: LABPAT 11:50
PROVIDERS: ATTEND Orthopaedic Surgery Hand Surgery
DX: Z01.812 Encounter for preprocedural laboratory examination (principal); S52.551A Other extraarticular fracture of lower end of right radius, initial encounter for closed fracture; X58.XXXA Exposure to other specified factors, initial encounter
CPT/HCPCS: 36415; 80051; 85025; 93005

== ENCOUNTER 2023-01-03 12:02 | Day surgery (SDC) | payer OTHER ==
--- NOTE | 2023-01-02 14:16 | P.HPOR ---
History of Present Illness H&P Date: 01/02/23 Subjective: This is a 47 year old female that presents today for follow up evaluation regarding a right wrist injury that occurred on 12/23/22 when she fell at home onto an outstretched hand. She had pain and swelling at that time and went to the ED where closed reduction and splinting was performed. She was seen 1 week prior and her fracture was in acceptable alignment at that time. She denies any paresthesias or prior injury to this wrist in the past. She is on Suboxone and is right hand dominant. She presents today for close radiographic follow up. Physical Examination: RUE: AIN/PIN/Radial/Ulnar/Median motor intact. Radial/Ulnar/Median SILT. 2+/4 Radial/Ulnar pulses palpated. 5/5 APB, 5/5 FDI. TTP with bruising/swelling over distal radius/ulna. Remainder of exam limited due to pain. EPL/FPL intact. Imaging: X-Rays of the right wrist 3V taken in office today demonstrate a distal radius fracture with dorsal comminution. Interval displacement of distal radius fracture with 20 degrees of dorsal angulation. Minimally displaced ulnar styloid fracture Impression: 1.) Right distal radius fracture 2.) Right ulnar styloid fracture Plan: Diagnosis and treatment options were discussed with the patient. We discussed her fracture has lost the initial reduction and is now 20 degrees dorsally angulated. I recommend right distal radius ORIF. Risks and benefits of surgery including bleeding, infection, damage to surrounding tissue, need for further surgery, residual numbness were discussed and the patient wished to go forward with surgery. The patient was agreeable with this plan. CC: Evens Garcia MD -Geronimo Evans DO Past Medical History Past Medical History: GERD/Reflux Additional Past Medical History / Comment(s): Pinched nerve in back/back pain R sciatica and R neck muscle spasms, History of Any Multi-Drug Resistant Organisms: MRSA Date of last positivie culture/infection: 08/07/18 MDRO Source:: TOE Past Surgical History: Hysterectomy, Orthopedic Surgery, Tonsillectomy, Tubal Ligation Additional Past Surgical History / Comment(s): RIGHT LEG FRACTURE ORIF/BRYANT REMOVED, UTERUS AND OVARIES REMOVED MORE THAN TEN YEARS AGO DUE TO CYSTIC FIBRO IDS AND ENDOMETRIOSIS, adrianna knees surgeries Past Anesthesia/Blood Transfusion Reactions: No Reported Reaction Additional Past Anesthesia/Blood Transfusion Reaction / Comment(s): clausterphobia. Pt has never received a blood transfusion Smoking Status: Current every day smoker - Past Family History Mother Family Medical History: Cancer Additional Family Medical History / Comment(s): LUNG CA FROM SMOKING; GREAT GRANDMA WAS DIABETIC Father History Unknown: Yes Additional Family Medical History / Comment(s): FATHER AT AGE OF 37 DUE TO RHEUMATIC FEVER COMPLICATIONS Medications and Allergies Home Medications Medication Instructions Recorded Confirmed Type Buprenorphine HCl/Naloxone HCl 0.5 film SL DAILY@1600 11/30/22 01/01/23 History [Suboxone 8 mg-2 mg Sl Film] Buprenorphine HCl/Naloxone HCl 1 film SL BID@0430,1200 11/30/22 01/01/23 History [Suboxone 8 mg-2 mg Sl Film] Omeprazole 20 mg PO BID@0430,1600 11/30/22 01/01/23 History Ondansetron Odt [Zofran ODT] 4 mg PO BID PRN 11/30/22 01/01/23 History Pregabalin [Lyrica] 150 mg PO BID@0430,1600 11/30/22 01/01/23 History Zonisamide [Zonegran] 200 mg PO DAILY@1600 11/30/22 01/01/23 History estradioL [Estrace] 1 mg PO DAILY@0430 11/30/22 01/01/23 History tiZANidine [Zanaflex] 4 mg PO BID@0430,1600 11/30/22 01/01/23 History busPIRone HCL 15 mg PO BID@0430,1600 30 Days #60 12/05/22 01/01/23 Rx tab lamoTRIgine [LaMICtal] 200 mg PO DAILY@0430 30 Days #30 12/05/22 01/01/23 Rx tab Ibuprofen [Motrin] 400 mg PO Q8HR PRN 01/01/23 01/01/23 History Sertraline [Zoloft] 50 mg PO 0430 01/01/23 01/01/23 History Allergies Allergy/AdvReac Type Severity Reaction Status Date / Time egg yolk Allergy Anaphylaxis Verified 01/01/23 13:13 /Itching Penicillins Allergy Anaphylaxis Verified 01/01/23 13:13 /Itching Sulfa (Sulfonamide Allergy Anaphylaxis Verified 01/01/23 13:13 Antibiotics) /Itching sulfamethoxazole Allergy Anaphylaxis Verified 01/01/23 13:13 [From Bactrim] /Itching trimethoprim [From Bactrim] Allergy Anaphylaxis Verified 01/01/23 13:13 /Itching Physical Examination Osteopathic Statement: *. No significant issues noted on an osteopathic structural exam other than those noted in the History and Physical/Consult.
[2023-01-03] MEDS ORDERED: LACTATED RINGERS 1,000 ML IV ONE ×2 (12:30→15:22)
[2023-01-03] MEDS ORDERED: ONDANSETRON 4 MG/2 ML VIAL ONE (12:32)
[2023-01-03 12:52] VITALS: TEMP 97.9
[2023-01-03] MEDS ORDERED: DEXAMETHASONE SOD PHOSPHATE 4 MG/ML 1 ML VIAL IVP ONE (12:58)
[2023-01-03] MEDS ORDERED: MIDAZOLAM 2 MG/2 ML VIAL IVP ONE (14:04)
[2023-01-03] MEDS: fentaNYL (PF) 50 MCG/1 ML VIAL IVP ONE ×3 (14:04→16:03)
--- NOTE | 2023-01-03 14:15 | P.ANPRN ---
Procedure Note - Anesthesia - Nerve Block Performed Right Supraclavicular Single Time Out Performed: Yes Date of Procedure: 01/03/23 Procedure Start Time: 14:03 Procedure Stop Time: 14:10 Location of Patient: PreOp Indication: Acute Post-Operative Pain, Requested by Surgeon Specifically requested for management of pain by DrAmada: Geronimo Evans Sedation Type: Sedate with meaningful contact maintained Preparation: Sterile Prep Position: Supine Needle Types: Pajunk Needle Gauge: 21 Ultrasound used to visualize needle placement: Yes Ultrasound used to observe medication spread: Yes Injectate: 0.5% Ropivacaine (see comment for volume) (20 ML + 4 MG DEXAMETHASONE) Blood Aspirated: No Pain Paresthesia on Injection Noted: No Resistance on Injection: Normal Image Stored and Saved: Yes Events: Uneventful and Well Tolerated
[2023-01-03] MEDS ORDERED: PROPOFOL 10 MG/ML 20 ML VIAL IV ONE (14:24)
[2023-01-03] MEDS ORDERED: MIDAZOLAM 2 MG/2 ML VIAL ONE (14:24)
[2023-01-03] MEDS ORDERED: fentaNYL (PF) 50 MCG/ML 2 ML AMP ONE (14:24)
[2023-01-03] MEDS ORDERED: ROPIVACAINE 5 MG/ML 30 ML VIAL ONE (14:24)
[2023-01-03] MEDS ORDERED: DEXAMETHASONE SOD PHOSPHATE 4 MG/ML 1 ML VIAL ONE (14:24)
[2023-01-03] MEDS ORDERED: LIDOCAINE 2% INJ 20 MG/ML (2 ML VIAL) ONE (14:24)
--- NOTE | 2023-01-03 15:25 | P.OP ---
Date of Procedure: 01/03/23 Preoperative Diagnosis: 1.) Right intra-articular distal radius fracture, 3 part. 2.) Right ulnar styloid fracture Postoperative Diagnosis: 1.) Right intra-articular distal radius fracture, 3 part. 2.) Right ulnar styloid fracture Procedure(s) Performed: 1.) Open reduction internal fixation of right intra-articular distal radius fracture, 3 part. 2.) Closed treatment of ulnar styloid fracture Implants: Arthrex volar locking distal radius plate. Short/Narrow. Anesthesia: IDAA, regional Surgeon: Geronimo Evans Cell Tester #1: Nasim Silvestre Estimated Blood Loss (ml): 0 Pathology: none sent Condition: stable Disposition: PACU Description of Procedure: This is a 46 year old female who sustained a displaced intra-articular distal radius fracture and presents today for open reduction internal fixation of their right distal radius fracture. Risks and benefits of surgery were discussed with the patient including bleeding, damage to surrounding tissue, infection, need for further surgery as well as risks of anesthesia including pulmonary embolism and even and the patient wished to proceed with surgical intervention. The patients was seen in the pre-operative area by myself. Consent and H&P were completed and updated. The correct extremity was marked in the pre-operative area by myself and all other questions were answered. Operative Narrative: The patient was brought to the operating room by the department of anesthesia. They remained on the portable stretcher and a rolling hand table was brought to the side of the operative extremity. Pre-operative time out was performed indicating the correct patient, procedure and laterality. All in the room agreed. Pre-operative antibiotics were given prior to skin incision. The patient was then drifted off to sleep by the department of anesthesia. A nonsterile tourniquet was then applied to the operative extremity and the right upper extremity was then prepped and draped in normal sterile fashion. The operative extremity was the exsanguinated with an esmarch bandage and the tourniquet was inflated to 250mmHg. A longitudinal incision centered over the FCR tendon was made with a 15-blade scalpel. Blunt dissection was taken down to the FCR tendon sheath using Bovie cautery for meticulous hemostasis. The FCR sheath was opened with tenotomy scissors. The floor of the FCR sheath was then incised with a 15-blade scalpel and the FPL tendon and muscle belly was swept bluntly in an ulnar direction to reveal the pronator quadratus. Pronator quadratus was sharply incised with a 15-blade scalpel along the radial border of the distal radius, coming across transversely parallel to the joint at the level of the watershed line, radial artery was identified and protected. Periosteal elevator was then used to elevate the pronator quadratus off the distal radius from a radial to ulnar fashion. A [place] elevator was used to lever the distal piece back into place and free up the fractured fragments. A narrow width 3 hole Arthrex titanium volar locking distal radius plate was chosen to fit the patients anatomy best. This was placed on the distal radius under direct visualization and the oblong hole was drilled and filled with a non-locking screw. The fracture was then reduced to the plate distally and a k-wire was placed in the ulnar most k-wire hole in the proximal row. Fluoroscopy was then utilized to confirm correct pl acement of plate in the radial/ulnar plane and distal k-wire placement was confirmed to be proximal to the subchondral bone on 20 degree elevated lateral view confirming extra-articular screw placement. Christianity of radial height, inclination and volar tilt was achieved. The distal rows and radial styloid screw holes were then drilled and filled from ulnar to radial with locking screws. Attention was then brought to the proximal shaft screws. Proximal nonlocking and locking shaft screws were drilled, measured, and filled. The wrist joint was the ranged and full smooth flexion/extension with no crepitus appreciated. Final imaging was taken confirming extra-articular placement of distal screws at DRUJ and radiocarpal joint. The wound was then irrigated. Subcutaneous closure was performed with 4-0 monocryl followed by skin closure with a running 4-0 Monocryl suture. Sterile dressing consisting of adaptic, 4x4s, and a volar plaster splint was applied. Tourniquet was let down and the hand had immediate perfusion. The patient was then woken by the department of anesthesia and transferred to PACU in stable condition. Nasim HAN was present for the case and assisted in major portions of the operation and hardware placement. Geronimo Evans D.O. Orthopedic Hand/Upper Extremity Surgeon
[2023-01-03 15:36] VITALS: RESP 18
[2023-01-03 16:30] VITALS: BP 123/67; PULSE 62
== END 2023-01-03 16:53 | disposition home or self-care (01) ==
LOC: OR 12:02
PROVIDERS: ATTEND Orthopaedic Surgery Hand Surgery
DX: S52.571A Other intraarticular fracture of lower end of right radius, initial encounter for closed fracture (principal); S52.611A Displaced fracture of right ulna styloid process, initial encounter for closed fracture; G89.18 Other acute postprocedural pain; K21.9 Gastro-esophageal reflux disease without esophagitis; Z98.890 Other specified postprocedural states; Z90.722 Acquired absence of ovaries, bilateral; F17.200 Nicotine dependence, unspecified, uncomplicated; Z83.3 Family history of diabetes mellitus; W19.XXXA Unspecified fall, initial encounter
CPT/HCPCS: 64415; 25609; C1713; J2250; J1100; J0690; J2405; J3010 ×2; J2795; J2704; J2001